=== PATIENT | male | born 1955 | race Caucasian/White ===

== ENCOUNTER 2022-12-07 13:44 | Observation (INO) | payer OTHER, SELFPAY ==
[2022-12-07] VITALS (15 sets, daily range): BP systolic 107–124; BP diastolic 55–67; PULSE 84–103; RESP 15–27; TEMP 36.9–37.7; O2SAT 92–95; BMI 35.9
--- NOTE | 2022-12-07 13:57 | DI.RAD.S_ITS ---
PROCEDURE: XR CHEST 1V INDICATIONS: suspected sepsis TECHNIQUE: One view of the chest was acquired. COMPARISON: None. FINDINGS: Surgical changes and devices: None. Lungs and pleura: Airspace opacity in right mid lung field and lower lung lewis are seen. Left lung is clear. No pleural effusions or pneumothorax. Mediastinum: Mediastinal contours appear normal. Heart size is normal. Bones and chest wall: No suspicious bony lesions. Overlying soft tissues appear unremarkable. IMPRESSION: Finding is concerning for patchy right upper and lower lobe infiltrates. No pleural effusion or pneumothorax. Dictated by: Alfred Torres M.D. on 12/07/2022 at 14:23 Approved by: Alfred Torres M.D. on 12/07/2022 at 14:24
[2022-12-07 14:11] LABS: Add Manual Diff / Slide Review NO; Basophils Absolute Auto 100 /uL (0-100); Basophils Percent Auto 0.4 % (0-2); Eosinophils Absolute Auto 0 /uL (0-450); Hematocrit 40.1 % (41-53); Hemoglobin 13.5 g/dL (13.5-17.5); Lymphocytes Absolute Auto 1200 /uL (1100-4500); Lymphocytes Percent Auto 5.7 % (25-40); Mean Corpuscular HGB Conc 33.7 % (30-36); Mean Corpuscular Volume 86.1 fL (80-100); Monocytes Absolute Auto 1500 /uL (0-900); Neutrophils Absolute Auto 18400 /uL (1500-7000); Neutrophils Percent Auto 86.9 % (50-75); Platelet Count 179 X10^3/uL (150-400); Red Blood Cell Count 4.65 X10^6/uL (4.5-5.9); Red Cell Distribution Width 14.1 % (11.6-14.8); White Blood Cell Count 21.2 X10^3/uL (4.5-11.0)
[2022-12-07] MEDS: SODIUM CHLORIDE 0.9% 1,000 ML 1000 ML IV (14:12)
--- NOTE | 2022-12-07 14:22 | PC.NURSE ---
Pt reports productive, green, brown goo cough. Pt reports sick earlier this week and multiple grandchildren sick with RSV and respiratory infections.
[2022-12-07 14:30] LABS: INR 1.3 (0.9-1.3); Prothrombin Time 14.5 SECONDS (10.1-12.7)
[2022-12-07 14:33] LABS: PTT Partial Thromboplastin Tim 30 SECONDS (26-36)
[2022-12-07 14:35] LABS: Alanine Aminotransferase 67 IU/L (<50); Albumin 4.4 g/dL (3.5-5.0); Albumin Globulin Ratio 1.4 (1.0-2.8); Alkaline Phosphatase 62 U/L (38-126); Aspartate Aminotransferase 41 IU/L (17-59); BUN Creatinine Ratio 28.1 (6-22); Bilirubin Total 0.7 mg/dL (0.2-1.3); Blood Urea Nitrogen 27 mg/dL (9-20); Calcium 9.1 mg/dL (8.4-10.2); Carbon Dioxide 21 mmol/L (22-32); Chloride 99 mmol/L (98-107); Estimated Glomerular Filt Rate > 60 mL/min (>60); Globulin 3.1 g/dL (1.7-4.1); Glucose 196 mg/dL (80-110); HEMOLYSIS < 15 (0-50); Lipase 50 U/L (23-300); Potassium 4.3 mmol/L (3.4-5.1); Sodium 136 mmol/L (137-145); Total Protein 7.5 g/dL (6.3-8.2)
[2022-12-07 14:48] LABS: Influenza A - CEPHEID Flu A NEGATIVE (NEGATIVE); Influenza B - CEPHEID Flu B NEGATIVE (NEGATIVE); Respiratory Syncytial Virus POSITIVE (Negative)
--- NOTE | 2022-12-07 14:49 | ED_ITS ---
HPI - URI/Sore Throat General Chief Complaint: Fever Stated Complaint: cold or flu, fever, freezing Time Seen by Provider: 12/07/22 14:07 Source: patient Mode of arrival: Ambulatory History of Present Illness HPI Narrative: Patient is a 67-year-old history of hypertension hyperlipidemia, BPH, presents today with body aches cough fever ongoing for about 1 week. His grandson apparently has RSV he is not been feeling well for a week she is had some cough and upper respiratory like symptoms. Last night however he got much worse with rigors sweats. Today he feels significantly worse. He does have some mild shortness of breath both at rest and with exertion no significant chest pain. He is got a slightly productive cough. No abdominal pain nausea vomiting. He is no lower extremity edema. He is eating and drinking he is got a bottle of water he is trying to stay hydrated. He was doing okay his was out of town. He usually never wants to go to the doctor or the hospital and today he asked to come be evaluated. Related Data Home Medications Medication Instructions Recorded Confirmed allopurinol 300 mg tablet 300 mg PO DAILY 12/07/22 12/07/22 amlodipine 2.5 mg tablet 2.5 mg PO DAILY 12/07/22 12/07/22 atorvastatin 10 mg tablet 10 mg PO DAILY 12/07/22 12/07/22 baclofen 10 mg tablet 10 mg PO TID PRN muscle spasms 12/07/22 12/07/22 bisoprolol fumarate 5 mg tablet 2.5 mg PO DAILY 12/07/22 12/07/22 diclofenac sodium 1 % topical gel 4 g topical BID PRN Pain (Scale 12/07/22 12/07/22 Score 1-3) finasteride 5 mg tablet 5 mg PO DAILY 12/07/22 12/07/22 fluoxetine 20 mg capsule 20 mg PO DAILY 12/07/22 12/07/22 furosemide 20 mg tablet 10 mg PO QAM 12/07/22 12/07/22 gabapentin 300 mg tablet 300 mg PO TID nerve pain 12/07/22 12/07/22 lanolin alcohols-mineral 1 applic topical DAILY 12/07/22 12/07/22 oil-w.petrolatum-ceresin topical cream (Eucerin topical cream) losartan 100 mg tablet 100 mg PO BEDTIME 12/07/22 12/07/22 metformin 500 mg tablet 500 mg PO BIDWMEAL 12/07/22 12/07/22 montelukast 10 mg tablet 10 mg PO DAILY 12/07/22 12/07/22 pantoprazole 40 mg tablet,delayed 40 mg PO DAILY 12/07/22 12/07/22 release tamsulosin 0.4 mg capsule 0.4 mg PO BEDTIME 12/07/22 12/07/22 terbinafine HCl 250 mg tablet See Rx Instructions .Route .COMPLEX 12/07/22 12/07/22 triamcinolone acetonide 0.1 % 1 applic topical BID PRN Rash 12/07/22 12/07/22 topical cream Allergies Allergy/AdvReac Type Severity Reaction Status Date / Time sildenafil [From Viagra] Allergy Intermediate Flushing Verified 12/07/22 13:54 Review of Systems Review of Systems ROS Unobtainable: All systems reviewed & are unremarkable except as noted in HPI and below Patient History Medical History Diabetes Gout Hypertension Social History household members: spouse Smoking Status: Never smoker alcohol intake: never Smoking Status: Never smoker alcohol intake frequency: 0-2 drinks per day Substance Use Type: does not use Exam Initial Vital Signs Initial Vital Signs: Vital Signs Temperature 99.9 F H 12/07/22 13:49 Pulse Rate 103 H 12/07/22 13:49 Respiratory Rate 18 12/07/22 13:49 Blood Pressure 111/61 12/07/22 13:49 Pulse Oximetry 94 12/07/22 13:49 Oxygen Delivery Method 12/07/22 13:49 GENERAL: Alert pleasant 67-year-old male appears to not feel well but in no acute distress. HEENT: Head atraumatic,EOMI, pupils reactive, face symmetric, moist mucous membranes CARDIOVASCULAR: Regular rate and rhythm without murmurs, rubs or gallops. RESPIRATORY: Rales and rhonchi more on right than left no significant tachypnea ABDOMEN: Soft, nontender. Normoactive bowel sounds all 4 quadrants. No guarding or rebound. EXTREMITIES: Normal range of motion, no clubbing or edema. Neurovascularly intact NEUROLOGICAL: Alert and oriented x4.Normal gait and speech. SKIN: Warm, dry, no laceration, no petechiae, no rashes or lesions. Course Orders Ordered: ED Orders 12/07/22 13:57 XR chest 1V Stat 12/07/22 14:03 A1C [Hemoglobin A1C% w Est Avg Glu] Urgent Complete Blood Count AUTO DIFF Stat Comprehensive Metabolic Panel Stat Covid-19 + FLU A/B + RSV - PCR Stat Lactate (Lactic Acid) Stat Lipase Stat Magnesium Urgent Partial Thromboplastin Time Stat Procalcitonin Stat Prothrombin Time INR Stat 12/07/22 14:23 Blood Culture Stat 12/07/22 14:38 EKG-12 Lead Stat 12/07/22 15:14 Education, smoking cessation ONGOING 12/07/22 15:19 Sputum Culture Stat 12/08/22 05:00 BMP [Basic Metabolic Panel] DAILY CBC Auto Diff [Complete Blood Count AUTO DIFF] DAILY Procalcitonin Urgent 12/09/22 05:00 BMP [Basic Metabolic Panel] DAILY CBC Auto Diff [Complete Blood Count AUTO DIFF] DAILY 12/10/22 05:00 BMP [Basic Metabolic Panel] DAILY CBC Auto Diff [Complete Blood Count AUTO DIFF] DAILY Acetaminophen (Acetaminophen 325 Mg Tablet) 650 mg PO Q6H PRN PRN Reason: Fever/Mild Pain (1-3) Last Admin: 12/07/22 18:08 Dose: 650 mg Documented By: BT Albuterol/Ipratropium (Albuterol/Ipratropium 3 Ml Ampul) 3 ml INH [id number] PRN PRN Reason: wheezing Allopurinol (Allopurinol 300 Mg Tablet) 300 mg PO DAILY [facility] Atorvastatin Calcium (Atorvastatin 20 Mg Tablet) 10 mg PO BEDTIME MARK Azithromycin (Azithromycin 250 Mg Tablet) 500 mg PO DAILY MARK Stop: 12/10/22 08:59 Baclofen (Baclofen 10 Mg Tablet) 10 mg PO TID PRN PRN Reason: muscle spasms Dextrose (Dextrose 50 % In Water 25 Gm/50 Ml Syringe) 25 gm IV PRN PRN PRN Reason: Hypoglycemia Enoxaparin Sodium (Enoxaparin 40 Mg/0.4 Ml Syringe) 40 mg SUBCUT DAILY [facility] Finasteride (Finasteride 5 Mg Tablet) 5 mg PO DAILY [facility] Fluoxetine HCl (Fluoxetine 20 Mg Capsule) 20 mg PO DAILY [facility] Gabapentin (Gabapentin 300 Mg Capsule) 300 mg PO TID [facility] Ceftriaxone Sodium 1,000 mg/ (Sodium Chloride) 100 mls @ 200 mls/hr IV Q24H [facility] Stop: 12/12/22 08:59 Magnesium Sulfate (Magnesium Sulfate) 4 gm in 100 mls @ 25 mls/hr IV NOW ONE Stop: 12/07/22 21:40 Last Admin: 12/07/22 18:07 Dose: 25 mls/hr Documented By: CYNTHIA Co-signed By: MAHNAZ Insulin Human Lispro (Insulin Lispro 100 Unit/Ml 3ml Vial) 0 unit SUBCUT ACHS [facility]; Protocol Last Admin: 12/07/22 17:30 Dose: Not Given Documented By: CYNTHIA Melatonin (Melatonin 3 Mg Tablet) 6 mg PO BEDTIME PRN PRN Reason: Insomnia Montelukast Sodium (Montelukast 10 Mg Tablet) 10 mg PO DAILY [facility] Naloxone HCl (Naloxone 0.4 Mg/Ml Vial) 0.2 mg IV Q2MIN PRN PRN Reason: Opiate Reversal Ondansetron HCl (Ondansetron 4 Mg/2 Ml Inj) 4 mg IV NOW PRN PRN Reason: Nausea And Vomiting Ondansetron HCl (Ondansetron 4 Mg/2 Ml Inj) 4 mg IV Q6HR [facility] Last Admin: 12/07/22 17:30 Dose: Not Given Documented By: CYNTHIA Pantoprazole Sodium (Pantoprazole Dr 40 Mg Tablet) 40 mg PO 0600 [facility] Polyethylene Glycol (Polyethylene Glycol 3350 17 Gm Powd.Pack) 17 gm PO DAILY PRN PRN Reason: Constipation Sennosides (Sennosides 8.6 Mg Tablet) 8.6 mg PO BID PRN PRN Reason: Constipation Tamsulosin HCl (Tamsulosin 0.4 Mg Capsule) 0.4 mg PO BEDTIME [facility] Discontinued Medications Sodium Chloride (Normal Saline 0.9%) 1,000 mls @ 1,000 mls/hr IV BOLUS ONE Stop: 12/07/22 14:56 Last Infusion: 12/07/22 15:09 Dose: 0 mls/hr Documented By: Admin: 12/07/22 14:12 Dose: 1,000 mls/hr Documented By: NIKI Sodium Chloride (Normal Saline 0.9%) 3,401.94 mls @ 1,133.98 mls/hr 30 ml/kg infuse over 3 hr (3401.94 ml) IV NOW ONE Stop: 12/07/22 17:55 Last Infusion: 12/07/22 15:54 Dose: 0 mls/hr Documented By: Admin: 12/07/22 15:11 Dose: 1,133.98 mls/hr Documented By: NIKI Ceftriaxone Sodium 2,000 mg/ (Sodium Chloride) 100 mls @ 200 mls/hr IV NOW ONE Stop: 12/07/22 14:57 Last Infusion: 12/07/22 15:48 Dose: 0 mls/hr Documented By: Admin: 12/07/22 15:10 Dose: 200 mls/hr Documented By: NIKI Azithromycin 500 mg/ Dextrose 250 mls @ 250 mls/hr IV NOW ONE Stop: 12/07/22 14:57 Last Admin: 12/07/22 15:49 Dose: 250 mls/hr Documented By: NIKI Vital Signs Vital signs: Vital Signs - 8 hr 12/07/22 13:49 12/07/22 14:18 12/07/22 14:20 Temperature 99.9 F H 98.4 F Pulse Rate 103 H 90 90 Respiratory Rate 18 24 Blood Pressure 111/61 115/63 Pulse Oximetry 94 93 Oxygen Delivery Method Room Air 12/07/22 14:30 12/07/22 14:30 12/07/22 14:40 Temperature Pulse Rate 88 90 Respiratory Rate 25 H 27 H Blood Pressure 115/63 Pulse Oximetry 95 94 Oxygen Delivery Method 12/07/22 14:50 12/07/22 15:00 12/07/22 15:00 Temperature Pulse Rate 87 85 Respiratory Rate 20 23 Blood Pressure 124/67 Pulse Oximetry 93 Oxygen Delivery Method Room Air 12/07/22 15:23 12/07/22 15:24 12/07/22 15:24 Temperature Pulse Rate 87 85 Respiratory Rate 19 18 Blood Pressure 122/64 Pulse Oximetry 92 95 Oxygen Delivery Method MDM - URI/Sore Throat Lab Data 12/07/22 14:03 12/07/22 14:03 Labs: Lab Results 12/07/22 12/07/22 12/07/22 Range/Units 14:03 14:03 14:03 WBC 21.2 H (4.5-11.0) X10^3/uL RBC 4.65 (4.5-5.9) X10^6/uL Hgb 13.5 (13.5-17.5) g/dL Hct 40.1 L (41-53) % MCV 86.1 (80-100) fL MCH 29.0 (26-34) PG MCHC 33.7 (30-36) % RDW 14.1 (11.6-14.8) % Plt Count 179 (150-400) X10^3/uL Neut % (Auto) 86.9 H (50-75) % Lymph % (Auto) 5.7 L (25-40) % [place] % (Auto) 7.0 (3-14) % Eos % (Auto) 0.0 L (2-4) % Baso % (Auto) 0.4 (0-2) % Neut # (Auto) 15496 H (5542-3595) /uL Lymph # (Auto) 1200 (5359-5010) /uL [place] # (Auto) 1500 H (0-900) /uL Eos # (Auto) 0 (0-450) /uL Baso # (Auto) 100 (0-100) /uL PT 14.5 H (10.1-12.7) SECONDS INR 1.3 (0.9-1.3) APTT 30 (26-36) SECONDS Sodium 136 L (137-145) mmol/L Potassium 4.3 (3.4-5.1) mmol/L Chloride 99 (98-107) mmol/L Carbon Dioxide 21 L (22-32) mmol/L BUN 27 H (9-20) mg/dL Creatinine 0.96 (0.66-1.25) mg/dL Estimated GFR > 60 (>60) mL/min BUN/Creatinine Ratio 28.1 H (6-22) Glucose 196 H (80-110) mg/dL Hemoglobin A1c (4.0-6.0) % Lactate (0.7-2.1) mmol/L Calcium 9.1 (8.4-10.2) mg/dL Magnesium (1.6-2.3) mg/dL Total Bilirubin 0.7 (0.2-1.3) mg/dL AST 41 (17-59) IU/L ALT 67 H (<50) IU/L Alkaline Phosphatase 62 (38-126) U/L Total Creatine Kinase (55-170) U/L CK-MB (CK-2) (<2.37) ng/mL CK-MB (CK-2) Rel Index (1.5-5.0) % Troponin I (0.01-0.034) ng/mL NT-Pro-B Natriuret Pep (<125) pg/mL Total Protein 7.5 (6.3-8.2) g/dL Albumin 4.4 (3.5-5.0) g/dL Globulin 3.1 (1.7-4.1) g/dL Albumin/Globulin Ratio 1.4 (1.0-2.8) Lipase 50 (23-300) U/L Procalcitonin 4.77 H (<0.5) ng/mL SARS-CoV-2 (PCR) (Negative) Influenza A (RT-PCR) (NEGATIVE) Influenza B (RT-PCR) (NEGATIVE) RSV (PCR) (Negative) 12/07/22 12/07/22 12/07/22 Range/Units 14:03 14:03 14:03 WBC (4.5-11.0) X10^3/uL RBC (4.5-5.9) X10^6/uL Hgb (13.5-17.5) g/dL Hct (41-53) % MCV (80-100) fL MCH (26-34) PG MCHC (30-36) % RDW (11.6-14.8) % Plt Count (150-400) X10^3/uL Neut % (Auto) (50-75) % Lymph % (Auto) (25-40) % [place] % (Auto) (3-14) % Eos % (Auto) (2-4) % Baso % (Auto) (0-2) % Neut # (Auto) (0488-3411) /uL Lymph # (Auto) (7053-4743) /uL [place] # (Auto) (0-900) /uL Eos # (Auto) (0-450) /uL Baso # (Auto) (0-100) /uL PT (10.1-12.7) SECONDS INR (0.9-1.3) APTT (26-36) SECONDS Sodium (137-145) mmol/L Potassium (3.4-5.1) mmol/L Chloride (98-107) mmol/L Carbon Dioxide (22-32) mmol/L BUN (9-20) mg/dL Creatinine (0.66-1.25) mg/dL Estimated GFR (>60) mL/min BUN/Creatinine Ratio (6-22) Glucose (80-110) mg/dL Hemoglobin A1c 6.7 H (4.0-6.0) % Lactate 4.0 H (0.7-2.1) mmol/L Calcium (8.4-10.2) mg/dL Magnesium (1.6-2.3) mg/dL Total Bilirubin (0.2-1.3) mg/dL AST (17-59) IU/L ALT (<50) IU/L Alkaline Phosphatase (38-126) U/L Total Creatine Kinase (55-170) U/L CK-MB (CK-2) (<2.37) ng/mL CK-MB (CK-2) Rel Index (1.5-5.0) % Troponin I (0.01-0.034) ng/mL NT-Pro-B Natriuret Pep (<125) pg/mL Total Protein (6.3-8.2) g/dL Albumin (3.5-5.0) g/dL Globulin (1.7-4.1) g/dL Albumin/Globulin Ratio (1.0-2.8) Lipase (23-300) U/L Procalcitonin (<0.5) ng/mL SARS-CoV-2 (PCR) Negative (Negative) Influenza A (RT-PCR) Flu a negative (NEGATIVE) Influenza B (RT-PCR) Flu b negative (NEGATIVE) RSV (PCR) Positive A (Negative) 12/07/22 12/07/22 Range/Units 14:03 14:03 WBC (4.5-11.0) X10^3/uL RBC (4.5-5.9) X10^6/uL Hgb (13.5-17.5) g/dL Hct (41-53) % MCV (80-100) fL MCH (26-34) PG MCHC (30-36) % RDW (11.6-14.8) % Plt Count (150-400) X10^3/uL Neut % (Auto) (50-75) % Lymph % (Auto) (25-40) % [place] % (Auto) (3-14) % Eos % (Auto) (2-4) % Baso % (Auto) (0-2) % Neut # (Auto) (2376-5602) /uL Lymph # (Auto) (1916-8877) /uL [place] # (Auto) (0-900) /uL Eos # (Auto) (0-450) /uL Baso # (Auto) (0-100) /uL PT (10.1-12.7) SECONDS INR (0.9-1.3) APTT (26-36) SECONDS Sodium (137-145) mmol/L Potassium (3.4-5.1) mmol/L Chloride (98-107) mmol/L Carbon Dioxide (22-32) mmol/L BUN (9-20) mg/dL Creatinine (0.66-1.25) mg/dL Estimated GFR (>60) mL/min BUN/Creatinine Ratio (6-22) Glucose (80-110) mg/dL Hemoglobin A1c (4.0-6.0) % Lactate (0.7-2.1) mmol/L Calcium (8.4-10.2) mg/dL Magnesium 1.3 L (1.6-2.3) mg/dL Total Bilirubin (0.2-1.3) mg/dL AST (17-59) IU/L ALT (<50) IU/L Alkaline Phosphatase (38-126) U/L Total Creatine Kinase 113 (55-170) U/L CK-MB (CK-2) 0.62 (<2.37) ng/mL CK-MB (CK-2) Rel Index 0.5 L (1.5-5.0) % Troponin I < 0.012 (0.01-0.034) ng/mL NT-Pro-B Natriuret Pep 138 H (<125) pg/mL Total Protein (6.3-8.2) g/dL Albumin (3.5-5.0) g/dL Globulin (1.7-4.1) g/dL Albumin/Globulin Ratio (1.0-2.8) Lipase (23-300) U/L Procalcitonin (<0.5) ng/mL SARS-CoV-2 (PCR) (Negative) Influenza A (RT-PCR) (NEGATIVE) Influenza B (RT-PCR) (NEGATIVE) RSV (PCR) (Negative) Imaging Data Chest x-ray: Radiologist's Impression: Signed Patient: Asif Asencio MR#: [id number] : 1955 Acct:[id number] Age/Sex: 67 / M Date of Service: 12/07/22 Loc: ED Accession Number: [id number] ?? Procedure: XR chest 1V Ordering Provider: Camryn Barrios D.O. PROCEDURE:? XR CHEST 1V ? INDICATIONS:? suspected sepsis ? TECHNIQUE:? One view of the chest was acquired.? ? COMPARISON:? None. ? FINDINGS:? ? Surgical changes and devices:? None.? ? Lungs and pleura:? Airspace opacity in right mid lung field and lower lung lewis are seen.? Left lung is clear.? No pleural effusions or pneumothorax.? ? Mediastinum:? Mediastinal contours appear normal.? Heart size is normal.? ? Bones and chest wall:? No suspicious bony lesions.? Overlying soft tissues appear unremarkable.? ? IMPRESSION:? Finding is concerning for patchy right upper and lower lobe infiltrates.? No pleural effusion or pneumothorax. ? ? Dictated by: Alfred Torres M.D. on 12/07/2022 at 14:23 ? ? Approved by: Alfred Torres M.D. on 12/07/2022 at 14:24 ? [facility] Narrative Medical decision making narrative: Patient 67-year-old male history of hypertension hyperlipidemia presenting today with cough fever and shortness of breath. He is found have pneumonia with right upper and lower lobe infiltrate. He is leukocytosis of 21 with a lactate of 4 procalcitonin 4.6. Is minimally tachycardic with heart rate of 103 which improved with fluids. He has low-grade fever of 99.9. His signs and symptoms consistent with pneumonia. Respiratory panel was also positive for RSV. He generally does not feel well however blood pressure remains stable. Respiratory rate is slowly increasing. Sepsis fluids are given due to significantly elevated lactate 4.0, which did improve to 2.5. He received 2 L bolus however increasing difficulty breathing however still not hypoxic. He denies any prior history of congestive heart failure. I have Re evaluated him he is sitting upright mildly tachypneic he still continues to have rales on the right side. BNP troponin and repeat x-ray have been added. Dr. Hernandez updated on patient's symptoms test results kindly accepts patient. Discharge Plan Departure Patient Disposition: Admitted As Inpatient Clinical Impression: Pneumonia, Sepsis, RSV infection Admit Date/Time: 12/07/22 15:25 Admit Provider: Leonard Hernandez
[2022-12-07 14:51] LABS: Procalcitonin 4.77 ng/mL (<0.5)
[2022-12-07] MEDS: cefTRIAXone 2,000 MG in SODIUM CHLORIDE 0.9% 100 ML 200 MG IV (15:10)
[2022-12-07] MEDS: SODIUM CHLORIDE 0.9% 3,401.94 ML 1133.98 ML IV (15:11)
[2022-12-07 15:22] LABS: COVID-19 CEPHEID 4-PLEX PCR Negative (Negative)
--- NOTE | 2022-12-07 15:27 | PM.HP.1 ---
History of Present Illness History of Present Illness Date Patient Seen: 12/07/22 Chief complaint: cold or flu, fever, freezing Narrative: Merly brush is a 67-year-old male with past medical history of asthma, gout, hypertension, hyperlipidemia, depression, BPH, and type 2 diabetes who presents with 1 week of fever, chills and shortness of breath. Patient says his grandsons were both recently sick with the cold. He then started feeling ill and hasn't gotten better in about a week so came to the ED. Has had lots of wheezing and sputum production. Denies CP, NV, abd pain, diarrhea or headache. Patient History Medical History Diabetes Gout Hypertension Family & Social History Safety & Behavioral: Feels Safe in Current Yes Environment Been Physically Hurt or No Threatened By a Person Tobacco & Substance use: Smoking Status Never smoker alcohol intake frequency 0-2 drinks per day Substance Use Type does not use Meds Home Medications and Allergies Home Medications Medication Instructions Recorded Confirmed Type allopurinol 300 mg tablet 300 mg PO DAILY 12/07/22 12/07/22 History amlodipine 2.5 mg tablet 2.5 mg PO DAILY 12/07/22 12/07/22 History atorvastatin 10 mg tablet 10 mg PO DAILY 12/07/22 12/07/22 History baclofen 10 mg tablet 10 mg PO TID PRN muscle spasms 12/07/22 12/07/22 History bisoprolol fumarate 5 mg tablet 2.5 mg PO DAILY 12/07/22 12/07/22 History diclofenac sodium 1 % topical gel 4 g topical BID PRN Pain (Scale 12/07/22 12/07/22 History Score 1-3) finasteride 5 mg tablet 5 mg PO DAILY 12/07/22 12/07/22 History fluoxetine 20 mg capsule 20 mg PO DAILY 12/07/22 12/07/22 History furosemide 20 mg tablet 10 mg PO QAM 12/07/22 12/07/22 History gabapentin 300 mg tablet 300 mg PO TID nerve pain 12/07/22 12/07/22 History lanolin alcohols-mineral 1 applic topical DAILY 12/07/22 12/07/22 History oil-w.petrolatum-ceresin topical cream (Eucerin topical cream) losartan 100 mg tablet 100 mg PO BEDTIME 12/07/22 12/07/22 History metformin 500 mg tablet 500 mg PO BIDWMEAL 12/07/22 12/07/22 History montelukast 10 mg tablet 10 mg PO DAILY 12/07/22 12/07/22 History pantoprazole 40 mg tablet,delayed 40 mg PO DAILY 12/07/22 12/07/22 History release tamsulosin 0.4 mg capsule 0.4 mg PO BEDTIME 12/07/22 12/07/22 History terbinafine HCl 250 mg tablet See Rx Instructions .Route .COMPLEX 12/07/22 12/07/22 History triamcinolone acetonide 0.1 % 1 applic topical BID PRN Rash 12/07/22 12/07/22 History topical cream Allergies Allergy/AdvReac Type Severity Reaction Status Date / Time sildenafil [From Viagra] Allergy Intermediate Flushing Verified 12/07/22 13:54 Review of Systems Review of Systems Narrative: All other systems reviewed with the patient and are negative unless otherwise stated. Exam Vital Signs (past 8 hours): - 12/07/22 13:49 12/07/22 14:18 12/07/22 14:20 Temperature 99.9 F H 98.4 F Pulse Rate 103 H 90 90 Respiratory Rate 18 24 Blood Pressure 111/61 115/63 Pulse Oximetry 94 93 Oxygen Delivery Method Room Air 12/07/22 14:30 12/07/22 14:30 12/07/22 14:40 Temperature Pulse Rate 88 90 Respiratory Rate 25 H 27 H Blood Pressure 115/63 Pulse Oximetry 95 94 Oxygen Delivery Method 12/07/22 14:50 12/07/22 15:00 12/07/22 15:00 Temperature Pulse Rate 87 85 Respiratory Rate 20 23 Blood Pressure 124/67 Pulse Oximetry 93 Oxygen Delivery Method Room Air Oxygen Delivery Method Room Air Narrative Exam Narrative: GEN: no acute distress HEENT: moist mucous membranes, PERRL NECK: trachea midline, no JVD CV: regular rate and rhythm, no murmurs PULM: diffuse expiratory wheezes ABD: soft, nontender, nondistended, no organomegaly EXT: warm and well perfused with no edema NEURO: awake, alert, oriented, no focal deficits Objective Labs 12/07/22 14:03 12/07/22 14:03 Labs: Laboratory Results - last 24 hr 12/07/22 12/07/22 12/07/22 14:03 14:03 14:03 WBC 21.2 H RBC 4.65 Hgb 13.5 Hct 40.1 L MCV 86.1 MCH 29.0 MCHC 33.7 RDW 14.1 Plt Count 179 Neut % (Auto) 86.9 H Lymph % (Auto) 5.7 L [place] % (Auto) 7.0 Eos % (Auto) 0.0 L Baso % (Auto) 0.4 Neut # (Auto) 49142 H Lymph # (Auto) 1200 [place] # (Auto) 1500 H Eos # (Auto) 0 Baso # (Auto) 100 PT 14.5 H INR 1.3 APTT 30 Sodium 136 L Potassium 4.3 Chloride 99 Carbon Dioxide 21 L BUN 27 H Creatinine 0.96 Estimated GFR > 60 BUN/Creatinine Ratio 28.1 H Glucose 196 H Lactate Calcium 9.1 Total Bilirubin 0.7 AST 41 ALT 67 H Alkaline Phosphatase 62 Total Protein 7.5 Albumin 4.4 Globulin 3.1 Albumin/Globulin Ratio 1.4 Lipase 50 Procalcitonin 4.77 H SARS-CoV-2 (PCR) Influenza A (RT-PCR) Influenza B (RT-PCR) RSV (PCR) 12/07/22 12/07/22 14:03 14:03 WBC RBC Hgb Hct MCV MCH MCHC RDW Plt Count Neut % (Auto) Lymph % (Auto) [place] % (Auto) Eos % (Auto) Baso % (Auto) Neut # (Auto) Lymph # (Auto) [place] # (Auto) Eos # (Auto) Baso # (Auto) PT INR APTT Sodium Potassium Chloride Carbon Dioxide BUN Creatinine Estimated GFR BUN/Creatinine Ratio Glucose Lactate 4.0 H Calcium Total Bilirubin AST ALT Alkaline Phosphatase Total Protein Albumin Globulin Albumin/Globulin Ratio Lipase Procalcitonin SARS-CoV-2 (PCR) Negative Influenza A (RT-PCR) Flu a negative Influenza B (RT-PCR) Flu b negative RSV (PCR) Positive A Assessment & Plan Assessment & Plan narrative: # sepsis secondary to RSV pneumonia with possible bacterial superinfection -WBC 21, HR 103 and lactate 4 -RSV positive on PCR, chest x-ray with infiltrates consistent with pneumonia -procalcitonin 4 suggesting bacterial infection -ceftriaxone x5 days and azithromycin x3 days -obtain sputum culture -trend procalcitonin # likely asthma without offical diagnosis -diffuse wheezes on exam -continue montelukast -duonebs q4h PRN # lactic acidosis -lactic acid of 4 in ED -s/p fluid boluses -trend lactate until normal -now 2.5 # type 2 diabetes, chronic -hold home metformin -low-dose sliding scale insulin -check A1c # hypertension, chronic -hold home blood pressure meds in setting of sepsis -resume if becomes hypertensive # hyperlipidemia, chronic -continue home statin # BPH -continue home finasteride and flomax # depression -continue home prozac # GERD -continue PPI # gout -continue allopurinol Code status is full code. COVID negative. RSV positive. DVT prophylaxis with Lovenox. Proxy is [place]. I have reviewed home meds and used all available resources to reconcile the home meds. This patient will be admitted as inpatient and will require greater than 2 midnights of hospital time to treat acquired pneumonia. Time Spent With Patient Critical Care time: I spent a total of [] minutes of critical care time on this patient's care today; this time is exclusive of procedural time.
[2022-12-07 15:38] LABS: Magnesium 1.3 mg/dL (1.6-2.3)
[2022-12-07 15:40] LABS: Hemoglobin A1C% w Est Avg Glu 6.7 % (4.0-6.0)
[2022-12-07] MEDS: AZITHROMYCIN 500 MG in DEXTROSE 5% IN WATER 250 ML 250 MG IV (15:49)
--- NOTE | 2022-12-07 16:03 | DI.RAD.S_ITS ---
PROCEDURE: XR CHEST 1V INDICATIONS: Short of breath TECHNIQUE: One view of the chest was acquired. COMPARISON: [facility], CR, XR CHEST 1V, 12/07/2022, 14:00. FINDINGS: Surgical changes and devices: None. Lungs and pleura: Patchy right midlung infiltrate can be seen, which is similar to the prior. Mediastinum: Mediastinal contours appear normal. Heart size is normal. Bones and chest wall: No suspicious bony lesions. Overlying soft tissues appear unremarkable. IMPRESSION: Stable patchy right midlung infiltrate. Dictated by: Syd Tom M.D. on 12/07/2022 at 15:35 Approved by: Syd Tom M.D. on 12/07/2022 at 15:35
--- NOTE | 2022-12-07 16:03 | PC.NURSE ---
Pt has audible wheezing. LS throughout have expiratory wheezes. Provider aware. New orders.
[2022-12-07 16:08] LABS: Reflexed Lactate in 2 Hours Y
[2022-12-07 16:16] LABS: Creatine Kinase 113 U/L (55-170)
[2022-12-07 16:29] LABS: NT-proBNP (BNP-Adult 18+) 138 pg/mL (<125); Troponin I < 0.012 ng/mL (0.01-0.034)
[2022-12-07 16:31] LABS: CKMB % Relative Index 0.5 % (1.5-5.0); Creatine Kinase MB 0.62 ng/mL (<2.37)
[2022-12-07 16:32] LABS: Lactate 2HR (Lactic Acid Rflx) 2.5 mmol/L (0.7-2.1)
[2022-12-07] MEDS: MAGNESIUM SULFATE 4 GM/100 ML PIGGYBACK IV (18:07)
[2022-12-07] MEDS: ACETAMINOPHEN 325 MG TABLET 650 MG PO (18:08)
[2022-12-07] MEDS: GABAPENTIN 300 MG CAPSULE PO (20:52)
[2022-12-07] MEDS: ATORVASTATIN 20 MG TABLET 10 MG PO (20:52)
[2022-12-07] MEDS: TAMSULOSIN 0.4 MG CAPSULE PO (20:52)
[2022-12-07] MEDS: BACLOFEN 10 MG TABLET PO (20:52)
[2022-12-07] MEDS: MELATONIN 3 MG TABLET 6 MG PO (20:53)
[2022-12-07] MEDS: ALBUTEROL/IPRATROPIUM 3 ML AMPUL INH (20:55)
[2022-12-08] VITALS (9 sets, daily range): BP systolic 101–147; BP diastolic 56–82; PULSE 67–118; RESP 18–20; TEMP 36.6–37.4; O2SAT 90–96
[2022-12-08] MEDS: PANTOPRAZOLE DR 40 MG TABLET PO (05:29)
[2022-12-08] MEDS: ACETAMINOPHEN 325 MG TABLET 650 MG PO ×2 (05:29→18:51)
[2022-12-08 07:55] LABS: Add Manual Diff / Slide Review NO; Basophils Absolute Auto 0 /uL (0-100); Basophils Percent Auto 0.3 % (0-2); Eosinophils Absolute Auto 100 /uL (0-450); Eosinophils Percent Auto 0.9 % (2-4); Hematocrit 35.1 % (41-53); Hemoglobin 11.7 g/dL (13.5-17.5); Lymphocytes Absolute Auto 1700 /uL (1100-4500); Lymphocytes Percent Auto 12.2 % (25-40); Mean Corpuscular HGB Conc 33.5 % (30-36); Mean Corpuscular Volume 86.5 fL (80-100); Monocytes Absolute Auto 800 /uL (0-900); Monocytes Percent Auto 5.8 % (3-14); Neutrophils Absolute Auto 11400 /uL (1500-7000); Neutrophils Percent Auto 80.8 % (50-75); Platelet Count 139 X10^3/uL (150-400); Red Blood Cell Count 4.05 X10^6/uL (4.5-5.9); Red Cell Distribution Width 14.1 % (11.6-14.8); White Blood Cell Count 14.1 X10^3/uL (4.5-11.0)
[2022-12-08 08:12] LABS: BUN Creatinine Ratio 26.2 (6-22); Blood Urea Nitrogen 17 mg/dL (9-20); Calcium 8.5 mg/dL (8.4-10.2); Carbon Dioxide 27 mmol/L (22-32); Chloride 101 mmol/L (98-107); Estimated Glomerular Filt Rate > 60 mL/min (>60); Glucose 127 mg/dL (80-110); HEMOLYSIS < 15 (0-50); Potassium 4.2 mmol/L (3.4-5.1); Sodium 138 mmol/L (137-145)
[2022-12-08 08:16] LABS: Magnesium 2.1 mg/dL (1.6-2.3)
[2022-12-08 08:27] LABS: Procalcitonin 3.03 ng/mL (<0.5)
[2022-12-08] MEDS: ENOXAPARIN 40 MG/0.4 ML SYRINGE SUBCUT (09:32)
[2022-12-08] MEDS: allopurinoL 300 MG TABLET PO (09:32)
[2022-12-08] MEDS: GABAPENTIN 300 MG CAPSULE PO ×3 (09:33→20:40)
[2022-12-08] MEDS: MONTELUKAST 10 MG TABLET PO (09:33)
[2022-12-08] MEDS: FINASTERIDE 5 MG TABLET PO (09:33)
[2022-12-08] MEDS: FLUoxetine 20 MG CAPSULE PO (09:33)
[2022-12-08] MEDS: cefTRIAXone 1,000 MG in SODIUM CHLORIDE 0.9% 100 ML 200 MG IV (09:33)
[2022-12-08] MEDS: AZITHROMYCIN 250 MG TABLET 500 MG PO (09:33)
--- NOTE | 2022-12-08 11:10 | P.PN_ITS ---
Subjective Subjective Interval history: Asif Asencio is a 67-year-old male with past medical history of asthma, gout, hypertension, hyperlipidemia, depression, BPH, and type 2 diabetes who presents with 1 week of fever, chills and shortness of breath. Patient says his grandsons were both recently sick with the cold. He then started feeling ill and hasn't gotten better in about a week so came to the ED. Has had lots of wheezing and sputum production. Denies CP, NV, abd pain, diarrhea or headache. RSV positive and Pneumonia noted on chest xray. Exam Vital Signs (past 8 hours): - 12/08/22 06:00 12/08/22 08:31 12/08/22 08:00 Temperature 98.5 F 97.8 F Pulse Rate 73 68 Respiratory Rate 20 Blood Pressure 107/65 122/56 L Pulse Oximetry 90 L 95 Oxygen Flow Rate 0 0 Oxygen Delivery Method Room Air Oxygen Flow Rate 0 Narrative Exam Narrative: GEN: no acute distress HEENT: moist mucous membranes, PERRL NECK: trachea midline, no JVD CV: regular rate and rhythm, no murmurs PULM: diffuse expiratory wheezes through the lung lewis, coughing a lot ABD: soft, nontender, nondistended, no organomegaly EXT: warm and well perfused with no edema NEURO: awake, alert, oriented, no focal deficits Objective Labs 12/08/22 07:22 12/08/22 07:22 Labs: Laboratory Results - last 24 hr 12/07/22 12/07/22 12/07/22 14:03 14:03 14:03 WBC 21.2 H RBC 4.65 Hgb 13.5 Hct 40.1 L MCV 86.1 MCH 29.0 MCHC 33.7 RDW 14.1 Plt Count 179 Neut % (Auto) 86.9 H Lymph % (Auto) 5.7 L [place] % (Auto) 7.0 Eos % (Auto) 0.0 L Baso % (Auto) 0.4 Neut # (Auto) 22845 H Lymph # (Auto) 1200 [place] # (Auto) 1500 H Eos # (Auto) 0 Baso # (Auto) 100 PT 14.5 H INR 1.3 APTT 30 Sodium 136 L Potassium 4.3 Chloride 99 Carbon Dioxide 21 L BUN 27 H Creatinine 0.96 Estimated GFR > 60 BUN/Creatinine Ratio 28.1 H Glucose 196 H Hemoglobin A1c Lactate Calcium 9.1 Magnesium Total Bilirubin 0.7 AST 41 ALT 67 H Alkaline Phosphatase 62 Total Creatine Kinase CK-MB (CK-2) CK-MB (CK-2) Rel Index Troponin I NT-Pro-B Natriuret Pep Total Protein 7.5 Albumin 4.4 Globulin 3.1 Albumin/Globulin Ratio 1.4 Lipase 50 Procalcitonin 4.77 H SARS-CoV-2 (PCR) Influenza A (RT-PCR) Influenza B (RT-PCR) RSV (PCR) 12/07/22 12/07/22 12/07/22 14:03 14:03 14:03 WBC RBC Hgb Hct MCV MCH MCHC RDW Plt Count Neut % (Auto) Lymph % (Auto) [place] % (Auto) Eos % (Auto) Baso % (Auto) Neut # (Auto) Lymph # (Auto) [place] # (Auto) Eos # (Auto) Baso # (Auto) PT INR APTT Sodium Potassium Chloride Carbon Dioxide BUN Creatinine Estimated GFR BUN/Creatinine Ratio Glucose Hemoglobin A1c 6.7 H Lactate 4.0 H Calcium Magnesium Total Bilirubin AST ALT Alkaline Phosphatase Total Creatine Kinase CK-MB (CK-2) CK-MB (CK-2) Rel Index Troponin I NT-Pro-B Natriuret Pep Total Protein Albumin Globulin Albumin/Globulin Ratio Lipase Procalcitonin SARS-CoV-2 (PCR) Negative Influenza A (RT-PCR) Flu a negative Influenza B (RT-PCR) Flu b negative RSV (PCR) Positive A 12/07/22 12/07/22 12/07/22 14:03 14:03 16:15 WBC RBC Hgb Hct MCV MCH MCHC RDW Plt Count Neut % (Auto) Lymph % (Auto) [place] % (Auto) Eos % (Auto) Baso % (Auto) Neut # (Auto) Lymph # (Auto) [place] # (Auto) Eos # (Auto) Baso # (Auto) PT INR APTT Sodium Potassium Chloride Carbon Dioxide BUN Creatinine Estimated GFR BUN/Creatinine Ratio Glucose Hemoglobin A1c Lactate 2.5 H Calcium Magnesium 1.3 L Total Bilirubin AST ALT Alkaline Phosphatase Total Creatine Kinase 113 CK-MB (CK-2) 0.62 CK-MB (CK-2) Rel Index 0.5 L Troponin I < 0.012 NT-Pro-B Natriuret Pep 138 H Total Protein Albumin Globulin Albumin/Globulin Ratio Lipase Procalcitonin SARS-CoV-2 (PCR) Influenza A (RT-PCR) Influenza B (RT-PCR) RSV (PCR) 12/08/22 12/08/22 12/08/22 07:22 07:22 07:22 WBC 14.1 H RBC 4.05 L Hgb 11.7 L Hct 35.1 L MCV 86.5 MCH 29.0 MCHC 33.5 RDW 14.1 Plt Count 139 L Neut % (Auto) 80.8 H Lymph % (Auto) 12.2 L [place] % (Auto) 5.8 Eos % (Auto) 0.9 L Baso % (Auto) 0.3 Neut # (Auto) 14253 H Lymph # (Auto) 1700 [place] # (Auto) 800 Eos # (Auto) 100 Baso # (Auto) 0 PT INR APTT Sodium 138 Potassium 4.2 Chloride 101 Carbon Dioxide 27 BUN 17 Creatinine 0.65 L Estimated GFR > 60 BUN/Creatinine Ratio 26.2 H Glucose 127 H Hemoglobin A1c Lactate Calcium 8.5 Magnesium 2.1 Total Bilirubin AST ALT Alkaline Phosphatase Total Creatine Kinase CK-MB (CK-2) CK-MB (CK-2) Rel Index Troponin I NT-Pro-B Natriuret Pep Total Protein Albumin Globulin Albumin/Globulin Ratio Lipase Procalcitonin 3.03 H SARS-CoV-2 (PCR) Influenza A (RT-PCR) Influenza B (RT-PCR) RSV (PCR) PFSH Medical History Diabetes Gout Hypertension Social History household members: spouse Smoking Status: Never smoker alcohol intake: never Assessment & Plan Assessment & Plan narrative: # sepsis secondary to RSV pneumonia with possible bacterial superinfection, blood cultures are pending. -WBC 21, HR 103 and lactate 4, today white blood count is 14.1 lactate is 2.5 -RSV positive on PCR, chest x-ray with infiltrates consistent with pneumonia -procalcitonin 4 suggesting bacterial infection, trending downward with level of 3.03 today -ceftriaxone x5 days and azithromycin x3 days -obtain sputum culture, result pending -trend procalcitonin # likely asthma without offical diagnosis -diffuse wheezes on exam -continue montelukast -duonebs q4h PRN -add prednisone 60 mg daily for 5 days # lactic acidosis -lactic acid of 4 in ED, has decreased to 2.5 today.continue to follow -s/p fluid boluses -trend lactate until normal # type 2 diabetes, chronic -hold home metformin -low-dose sliding scale insulin -check A1c, pending tomorrow # hypertension, chronic, stable today -hold home blood pressure meds in setting of sepsis -resume if becomes hypertensive # hyperlipidemia, chronic -continue home statin # BPH -continue home finasteride and flomax # depression -continue home prozac # GERD -continue PPI # gout -continue allopurinol Code status is full code. COVID negative.? RSV positive. DVT prophylaxis with Lovenox. Proxy is Minerva. Time Spent With Patient Critical Care time: I spent a total of [] minutes of critical care time on this patient's care today; this time is exclusive of procedural time.
[2022-12-08] MEDS: predniSONE 20 MG TABLET 60 MG PO (11:47)
[2022-12-08] MEDS: INSULIN LISPRO 100 UNIT/ML 3ML VIAL SUBCUT ×2 (11:58→17:01)
--- NOTE | 2022-12-08 13:13 | CM.DANOTE ---
DCP: Assessment 67 yo male admitted via POV with c/o body aches, cough, fever ongoing for about a week that had worsened overnight with noted rigors sweats. He is noted to have Pneumonia, Sepsis, RSV infection. This CM unable to meet with pt in his room due to isolation precautions. This CM spoke with pt's Minerva who is in the room with pt . She confirms that they live in [place], that pt drives and that he does not use DME. PCP: Ruddy Kinsey -- [facility], [facility], [facility] P: Home with when medically stable. Laura Holden RN Case Manager Discharge Planning/Care Management CM Discharge Assessment Start: 12/08/22 13:12 Freq: Status: Active Protocol: Document 12/08/22 13:12 SUSANNAH (Rec: 12/08/22 13:13 SUSANNAH [id number]) Discharge Planning Assessment Assigned Switch Foreman Laura Holden RN Case Manager Advance Directives? No History Provided By Family Member,Medical Record Has Patient been admitted in last 30 No days? Prior Living Arrangements House Household Members spouse Type of transporation used prior to Drives own vehicle admit Independent with ADL's Yes Is patient alert and oriented? Yes Comment Home with Spouse Barriers to Discharge No Whiteboard Updated in Patient Room with Yes name and ext. # of Switch Foreman Review Status In Process Next Review Type Continued Stay Review
--- NOTE | 2022-12-08 17:15 | PC.NURSE ---
Day shift: Pt has denied any nausea all day. Schedualed Zofran was not given per Pt's request.
[2022-12-08] MEDS: ALBUTEROL/IPRATROPIUM 3 ML AMPUL INH (17:55)
[2022-12-08] MEDS: ATORVASTATIN 20 MG TABLET 10 MG PO (20:40)
[2022-12-08] MEDS: SODIUM CHLORIDE 0.9% FLUSH 10 ML IV (20:47)
[2022-12-08] MEDS: TAMSULOSIN 0.4 MG CAPSULE PO (20:51)
[2022-12-09] VITALS: BP 142/79; PULSE 77; RESP 20; TEMP 36.4; O2SAT 94
[2022-12-09] MEDS: MELATONIN 3 MG TABLET 6 MG PO (03:30)
[2022-12-09] MEDS: ACETAMINOPHEN 325 MG TABLET 650 MG PO (03:30)
[2022-12-09 06:33] VITALS: BP 133/85; PULSE 80; RESP 18; TEMP 36.8; O2SAT 95
[2022-12-09 07:22] LABS: Add Manual Diff / Slide Review NO; Basophils Absolute Auto 0 /uL (0-100); Basophils Percent Auto 0.3 % (0-2); Eosinophils Absolute Auto 0 /uL (0-450); Eosinophils Percent Auto 0.3 % (2-4); Hematocrit 35.7 % (41-53); Lymphocytes Absolute Auto 1600 /uL (1100-4500); Lymphocytes Percent Auto 12.9 % (25-40); Mean Corpuscular HGB Conc 33.8 % (30-36); Mean Corpuscular Hemoglobin 29.1 PG (26-34); Mean Corpuscular Volume 86.2 fL (80-100); Monocytes Absolute Auto 800 /uL (0-900); Monocytes Percent Auto 6.1 % (3-14); Neutrophils Absolute Auto 10000 /uL (1500-7000); Neutrophils Percent Auto 80.4 % (50-75); Platelet Count 152 X10^3/uL (150-400); Red Blood Cell Count 4.14 X10^6/uL (4.5-5.9); Red Cell Distribution Width 14.1 % (11.6-14.8); White Blood Cell Count 12.5 X10^3/uL (4.5-11.0)
[2022-12-09 07:29] LABS: BUN Creatinine Ratio 20.6 (6-22); Blood Urea Nitrogen 14 mg/dL (9-20); Calcium 8.9 mg/dL (8.4-10.2); Carbon Dioxide 26 mmol/L (22-32); Chloride 104 mmol/L (98-107); Estimated Glomerular Filt Rate > 60 mL/min (>60); Glucose 152 mg/dL (80-110); HEMOLYSIS < 15 (0-50); Lactate (Lactic Acid) 1.6 mmol/L (0.7-2.1); Potassium 3.9 mmol/L (3.4-5.1); Sodium 138 mmol/L (137-145)
[2022-12-09 07:46] LABS: Procalcitonin 1.78 ng/mL (<0.5)
[2022-12-09] MEDS: INSULIN LISPRO 100 UNIT/ML 3ML VIAL SUBCUT (09:09)
[2022-12-09] MEDS: ENOXAPARIN 40 MG/0.4 ML SYRINGE SUBCUT (09:10)
[2022-12-09] MEDS: FLUoxetine 20 MG CAPSULE PO (09:10)
[2022-12-09] MEDS: FINASTERIDE 5 MG TABLET PO (09:10)
[2022-12-09] MEDS: AZITHROMYCIN 250 MG TABLET 500 MG PO (09:10)
[2022-12-09] MEDS: GABAPENTIN 300 MG CAPSULE PO (09:10)
[2022-12-09] MEDS: MONTELUKAST 10 MG TABLET PO (09:10)
[2022-12-09] MEDS: predniSONE 20 MG TABLET 60 MG PO (09:10)
[2022-12-09] MEDS: allopurinoL 300 MG TABLET PO (09:10)
[2022-12-09] MEDS: cefTRIAXone 1,000 MG in SODIUM CHLORIDE 0.9% 100 ML 100 MG IV (09:10)
[2022-12-09] MEDS: SODIUM CHLORIDE 0.9% FLUSH 10 ML IV (09:11)
--- NOTE | 2022-12-09 10:45 | P.DS_ITS ---
History of Present Illness History of Present Illness Date Patient Seen: 12/09/22 Chief complaint: cold or flu, fever, freezing Narrative: Asif Asencio is a 67-year-old male with past medical history of asthma, gout, hypertension, hyperlipidemia, depression, BPH, and type 2 diabetes who presents with 1 week of fever, chills and shortness of breath. Patient says his grandsons were both recently sick with the cold. He then started feeling ill and hasn't gotten better in about a week so came to the ED. Has had lots of wheezing and sputum production. Denies CP, NV, abd pain, diarrhea or headache. RSV positive and Pneumonia noted on chest xray. Discharge Providers Provider Date of admission: 12/07/22 15:25 Discharge Date: 12/09/22 Primary care physician: BUSTER Robles Discharge provider: Carol Michael MD Summary Hospital Course Discharge Diagnosis: Concern for sepsis however blood cultures negative RSV pneumonia with possible bacterial superinfection Leukocytosis Elevated procalcitonin Asthma secondary to pneumonia Lactic acidosis Type 2 diabetes Minimal elevation of BNP Hypertension Hyperlipidemia BPH Depression GERD Insomnia Anxiety secondary to prednisone Hospital Course: Asif Aesncio is a 67-year-old male with past medical history of asthma, gout, hypertension, hyperlipidemia, depression, BPH, and type 2 diabetes who presents with 1 week of fever, chills and shortness of breath. Patient says his grandsons were both recently sick with the cold. He then started feeling ill and hasn't gotten better in about a week so came to the ED. Has had lots of wheezing and sputum production. Denies CP, NV, abd pain, diarrhea or headache. RSV positive and Pneumonia noted on chest xray with right middle lobe pneumonia. Patient was treated with Azithromycin 500 mg for 3 days orally and Ceftriaxone 1 mg IV daily while in hospital and this was transitioned to 6 days of Augmentin 500/125 TID on discharge. For wheezing patient given 60 mg Prednisone daily in hospital and this was stepped down to 20 mg daily for 5 days starting the day after discharge at home. The prednisone was disrupting sleep and so patient prescribed both Melatonin and Trazodone for sleep on discharge. Blood cultures were negative. Procalciton and WBC were downtrending throughout the hospital stay. RSV was positive. Status at Discharge Cognitive/behavioral status at discharge: at baseline, oriented Functional status at discharge: independent ambulation Overall status at discharge: patient is progressing back to baseline Time Spent with Patient Time spent: Greater than 30 minutes Exam Vital Signs (past 8 hours): - 12/09/22 06:33 Temperature 98.2 F Pulse Rate 80 Respiratory Rate 18 Blood Pressure 133/85 Pulse Oximetry 95 Oxygen Flow Rate 0 Oxygen Delivery Method Room Air Oxygen Flow Rate 0 Narrative Exam Narrative: GEN: no acute distress HEENT: moist mucous membranes, PERRL NECK: trachea midline, no JVD CV: regular rate and rhythm, no murmurs PULM: ocassional expiratory wheezes through the lung lewis, coughing completely clears any wheezing ABD: soft, nontender, nondistended, no organomegaly EXT: warm and well perfused with no edema NEURO: awake, alert, oriented, no focal deficits Objective Labs 12/09/22 07:09 12/09/22 07:09 Labs: Laboratory Results - last 24 hr 12/09/22 12/09/22 12/09/22 07:09 07:09 07:09 WBC 12.5 H RBC 4.14 L Hgb 12.0 L Hct 35.7 L MCV 86.2 MCH 29.1 MCHC 33.8 RDW 14.1 Plt Count 152 Neut % (Auto) 80.4 H Lymph % (Auto) 12.9 L [place] % (Auto) 6.1 Eos % (Auto) 0.3 L Baso % (Auto) 0.3 Neut # (Auto) 97452 H Lymph # (Auto) 1600 [place] # (Auto) 800 Eos # (Auto) 0 Baso # (Auto) 0 Sodium 138 Potassium 3.9 Chloride 104 Carbon Dioxide 26 BUN 14 Creatinine 0.68 Estimated GFR > 60 BUN/Creatinine Ratio 20.6 Glucose 152 H Lactate Calcium 8.9 Magnesium 2.0 Procalcitonin 1.78 H 12/09/22 07:09 WBC RBC Hgb Hct MCV MCH MCHC RDW Plt Count Neut % (Auto) Lymph % (Auto) [place] % (Auto) Eos % (Auto) Baso % (Auto) Neut # (Auto) Lymph # (Auto) [place] # (Auto) Eos # (Auto) Baso # (Auto) Sodium Potassium Chloride Carbon Dioxide BUN Creatinine Estimated GFR BUN/Creatinine Ratio Glucose Lactate 1.6 Calcium Magnesium Procalcitonin [facility] Medical History Diabetes Gout Hypertension Social History household members: spouse Smoking Status: Never smoker alcohol intake: never Discharge Plan Discharge Plan Patient Disposition: Home Discharge orders & Medications Prescriptions: New sennosides [senna] 8.6 mg Tablet 8.6 mg PO BID PRN (Reason: Constipation) Qty: 30 0RF melatonin 3 mg Tablet 6 mg PO BEDTIME PRN (Reason: Insomnia) Qty: 30 0RF trazodone 50 mg tablet 25 mg PO BEDTIME MDD 25 mg PRN (Reason: sleep) Qty: 15 0RF prednisone 20 mg tablet 20 mg PO DAILY MDD 20mg Qty: 5 0RF Rx Instructions: Start on Dec 10 amoxicillin-pot clavulanate [Augmentin] 500-125 mg tablet 1 tab PO TID MDD 3 tablets Qty: 18 0RF Continued atorvastatin 10 mg Tablet 10 mg PO DAILY amlodipine 2.5 mg Tablet 2.5 mg PO DAILY bisoprolol fumarate 5 mg Tablet 2.5 mg PO DAILY baclofen 10 mg Tablet 10 mg PO TID PRN (Reason: muscle spasms) allopurinol 300 mg Tablet 300 mg PO DAILY furosemide 20 mg Tablet 10 mg PO QAM fluoxetine 20 mg Capsule 20 mg PO DAILY finasteride 5 mg Tablet 5 mg PO DAILY gabapentin 300 mg Tablet 300 mg PO TID diclofenac sodium 1 % Gel 4 g TOPICAL BID PRN (Reason: Pain (Scale Score 1-3)) Eucerin Cream 1 applic TOPICAL DAILY metformin 500 mg Tablet 500 mg PO BIDWMEAL triamcinolone acetonide 0.1 % Cream 1 applic TOPICAL BID PRN (Reason: Rash) Rx Instructions: christiana;ly moderate amount to affected area bid as needed for skin condition terbinafine HCl 250 mg Tablet See Rx Instructions .ROUTE .COMPLEX Rx Instructions: take one tablet by mouth every daon on the first 7 days of each month. tamsulosin 0.4 mg Capsule 0.4 mg PO BEDTIME pantoprazole 40 mg Tablet,Delayed Release (Dr/Ec) 40 mg PO DAILY montelukast 10 mg Tablet 10 mg PO DAILY losartan 100 mg Tablet 100 mg PO BEDTIME Follow up/Referrals: Ruddy Kinsey ARNP [Primary Care Provider] - Visit Report/Discharge Packet Stand Alone Forms: Patient Portal/API, Stroke Signs & Symptoms Discharge Data Primary Care Provider: Ruddy Kinsey Attending Provider: eLonard Hernandez
== END 2022-12-09 12:45 | disposition home or self-care (01) ==
LOC: ED 14:33 → AC 15:26
PROVIDERS: Neuromusculoskeletal Medicine, Sports Medicine; Admitting Provider Student in an Organized Health Care Education/Training Program; Emergency Provider Emergency Medicine; PCP Nurse Practitioner Family; Referring Provider Emergency Medicine; Visit Provider Student in an Organized Health Care Education/Training Program
DX: J12.1 Respiratory syncytial virus pneumonia (principal); D72.829 Elevated white blood cell count, unspecified; E22.1 Hyperprolactinemia; E11.9 Type 2 diabetes mellitus without complications; I10 Essential (primary) hypertension; K21.9 Gastro-esophageal reflux disease without esophagitis; F41.9 Anxiety disorder, unspecified; Z79.84 Long term (current) use of oral hypoglycemic drugs; Z20.822 Contact with and (suspected) exposure to COVID-19
CPT/HCPCS: 0241U; 36415; 71045; 80048; 80053; 81003; 82550; 82553; 82962; 83036; 83605; 83690; 83735; 83880; 84145; 84484; 85025; 85610; 85730; 87040; 87070; 87205; 93005; 93010; 94640; 96361; 96365; 96366; 96372; 99284; G0378; J0696; J1650; J1815; J3475

== ENCOUNTER 2022-12-31 14:51 | Emergency (ER) | payer OTHER, SELFPAY ==
[2022-12-07 17:07] VITALS: BMI 35.9
[2022-12-31 15:17] VITALS: BP 117/62; PULSE 67; RESP 18; TEMP 37.1; O2SAT 96; BMI 34.4
--- NOTE | 2022-12-31 15:21 | DI.RAD.S_ITS ---
PROCEDURE: XR CHEST 1V INDICATIONS: chest pain TECHNIQUE: One view of the chest was acquired. COMPARISON: [facility], CR, XR CHEST 1V, 12/07/2022, 16:02. FINDINGS: Surgical changes and devices: None. Lungs and pleura: Lungs are clear. No pleural effusions or pneumothorax. Mediastinum: Mediastinal contours appear normal. Heart size is normal. Bones and chest wall: No suspicious bony lesions. Overlying soft tissues appear unremarkable. IMPRESSION: No acute pulmonary process. Dictated by: Kym Shaffer M.D. on 12/31/2022 at 16:08 Approved by: Kym Shaffer M.D. on 12/31/2022 at 16:08
[2022-12-31 15:32] LABS: Add Manual Diff / Slide Review NO; Basophils Absolute Auto 100 /uL (0-100); Basophils Percent Auto 1.2 % (0-2); Eosinophils Absolute Auto 200 /uL (0-450); Eosinophils Percent Auto 3.1 % (2-4); Hematocrit 38.1 % (41-53); Hemoglobin 12.8 g/dL (13.5-17.5); Lymphocytes Absolute Auto 1300 /uL (1100-4500); Lymphocytes Percent Auto 26.8 % (25-40); Mean Corpuscular HGB Conc 33.6 % (30-36); Mean Corpuscular Hemoglobin 29.2 PG (26-34); Monocytes Absolute Auto 500 /uL (0-900); Monocytes Percent Auto 11.1 % (3-14); Neutrophils Absolute Auto 2900 /uL (1500-7000); Neutrophils Percent Auto 57.8 % (50-75); Platelet Count 162 X10^3/uL (150-400); Red Blood Cell Count 4.37 X10^6/uL (4.5-5.9); Red Cell Distribution Width 14.5 % (11.6-14.8); White Blood Cell Count 4.9 X10^3/uL (4.5-11.0)
[2022-12-31 15:38] LABS: INR 1.5 (0.9-1.3); Prothrombin Time 17.4 SECONDS (10.1-12.7)
[2022-12-31 15:41] LABS: PTT Partial Thromboplastin Tim 39 SECONDS (26-36)
[2022-12-31 15:43] LABS: Alanine Aminotransferase 62 IU/L (<50); Albumin 4.3 g/dL (3.5-5.0); Albumin Globulin Ratio 1.3 (1.0-2.8); Alkaline Phosphatase 51 U/L (38-126); Aspartate Aminotransferase 51 IU/L (17-59); Bilirubin Total 0.7 mg/dL (0.2-1.3); Blood Urea Nitrogen 19 mg/dL (9-20); Carbon Dioxide 27 mmol/L (22-32); Chloride 103 mmol/L (98-107); Creatine Kinase 107 U/L (55-170); Estimated Glomerular Filt Rate > 60 mL/min (>60); Globulin 3.2 g/dL (1.7-4.1); Glucose 117 mg/dL (80-110); Lipase 84 U/L (23-300); Potassium 4.5 mmol/L (3.4-5.1); Sodium 137 mmol/L (137-145); Total Protein 7.5 g/dL (6.3-8.2)
[2022-12-31 15:45] LABS: Magnesium 1.8 mg/dL (1.6-2.3)
[2022-12-31 15:58] LABS: CKMB % Relative Index 1.1 % (1.5-5.0); Creatine Kinase MB 1.14 ng/mL (<2.37)
[2022-12-31 16:07] LABS: Troponin I < 0.012 ng/mL (0.01-0.034)
[2022-12-31 16:45] LABS: HEMOLYSIS 62 (0-50)
[2022-12-31 17:56] LABS: Creatine Kinase 98 U/L (55-170)
[2022-12-31 18:09] LABS: Troponin I < 0.012 ng/mL (0.01-0.034)
[2022-12-31 19:29] VITALS: BP 133/70; PULSE 55; RESP 16; O2SAT 99
--- NOTE | 2022-12-31 20:25 | ED.CHESTPAIN ---
HPI - Chest Pain <Wilfrido Kirby PA-C - Last Filed: 12/31/22 20:30> General Chief Complaint: Chest Pain Stated Complaint: Tightness in chest, R abd pain, dizzy, headache Time Seen by Provider: 12/31/22 17:06 Source: patient and family Mode of arrival: Ambulatory Limitations: no limitations History of Present Illness HPI narrative: 67-year-old male with a history of AFib on Eliquis presents to the ED with 2 weeks of cough and fatigue. Patient was diagnosed 2 weeks ago with an RSV infection, which led to pneumonia and sepsis for which he was hospitalized here. Patient states that he has continued to cough since leaving the hospital and also feels very tired. Patient denies fever, chills, chest pain, shortness of breath, nausea, vomiting, abdominal pain, dysuria, dizziness, syncope. Patient states that he is sometimes lightheaded. Related Data Home Medications Medication Instructions Recorded Confirmed allopurinol 300 mg tablet 300 mg PO DAILY 12/07/22 12/07/22 amlodipine 2.5 mg tablet 2.5 mg PO DAILY 12/07/22 12/07/22 atorvastatin 10 mg tablet 10 mg PO DAILY 12/07/22 12/07/22 baclofen 10 mg tablet 10 mg PO TID PRN muscle spasms 12/07/22 12/07/22 bisoprolol fumarate 5 mg tablet 2.5 mg PO DAILY 12/07/22 12/07/22 diclofenac sodium 1 % topical gel 4 g topical BID PRN Pain (Scale 12/07/22 12/07/22 Score 1-3) finasteride 5 mg tablet 5 mg PO DAILY 12/07/22 12/07/22 fluoxetine 20 mg capsule 20 mg PO DAILY 12/07/22 12/07/22 furosemide 20 mg tablet 10 mg PO QAM 12/07/22 12/07/22 gabapentin 300 mg tablet 300 mg PO TID nerve pain 12/07/22 12/07/22 lanolin alcohols-mineral 1 applic topical DAILY 12/07/22 12/07/22 oil-w.petrolatum-ceresin topical cream (Eucerin topical cream) losartan 100 mg tablet 100 mg PO BEDTIME 12/07/22 12/07/22 metformin 500 mg tablet 500 mg PO BIDWMEAL 12/07/22 12/07/22 montelukast 10 mg tablet 10 mg PO DAILY 12/07/22 12/07/22 pantoprazole 40 mg tablet,delayed 40 mg PO DAILY 12/07/22 12/07/22 release tamsulosin 0.4 mg capsule 0.4 mg PO BEDTIME 12/07/22 12/07/22 terbinafine HCl 250 mg tablet See Rx Instructions .Route .COMPLEX 12/07/22 12/07/22 triamcinolone acetonide 0.1 % 1 applic topical BID PRN Rash 12/07/22 12/07/22 topical cream Previous Rx's Medication Instructions Recorded amoxicillin 500 mg-potassium 1 tab PO TID Pneumonia #18 tabs 12/09/22 clavulanate 125 mg tablet (Augmentin) melatonin 3 mg tablet 6 mg PO BEDTIME PRN Insomnia #30 12/09/22 tabs prednisone 20 mg tablet 20 mg PO DAILY wheezing #5 tabs 12/09/22 sennosides 8.6 mg tablet (senna) 8.6 mg PO BID PRN Constipation #30 12/09/22 tabs trazodone 50 mg tablet 25 mg PO BEDTIME PRN sleep #15 tabs 12/09/22 benzonatate 200 mg capsule 200 mg PO TID PRN cough #30 caps 12/31/22 Allergies Allergy/AdvReac Type Severity Reaction Status Date / Time sildenafil [From Viagra] Allergy Intermediate Flushing Verified 12/07/22 13:54 Review of Systems <Wilfrido Kirby PA-C - Last Filed: 12/31/22 20:30> Review of Systems ROS Unobtainable: All systems reviewed & are unremarkable except as noted in HPI and below Constitutional Constitutional: Denies chills, Reports fatigue, Denies fever(s), Denies frequent falls, Denies lethargy and Denies weakness Eyes Eyes: Denies change in vision, Denies eye discharge, Denies irritation and Denies loss of vision ENT Ears, Nose, Mouth, and Throat: Denies change in voice, Denies dizziness, Denies neck pain, Denies sore throat and Denies throat swelling Cardiovascular Cardiovascular: Denies chest pain, Denies irregular heart rhythm, Reports lightheadedness, Denies palpitations, Denies dyspnea, Denies dyspnea on exertion and Denies orthopnea Respiratory Respiratory: Reports cough, Denies dyspnea, Denies dyspnea on exertion and Denies wheezing Gastrointestinal Gastrointestinal: Denies abdominal pain, Denies change in bowel habits, Denies diarrhea, Denies nausea and Denies vomiting Genitourinary Genitourinary: Denies hematuria, Denies flank pain, Denies urinary incontinence and Denies urinary urgency Musculoskeletal Musculoskeletal: Denies back pain, Denies muscle weakness, Denies neck pain, Denies numbness and Denies tingling Integumentary/Breasts Skin/Breast: Denies pruritus, Denies erythema, Denies rash and Denies wounds Neurologic Neurologic: Denies behavioral changes, Denies confusion, Denies dizziness, Denies frequent falls, Denies loss of vision, Denies numbness, Denies tingling and Denies weakness Psychiatric Psychiatric: Denies anxiety, Denies behavioral changes, Denies confusion, Denies depression, Denies homicidal ideation and Denies suicidal ideation Endocrine Endocrine: Reports fatigue, Denies flushing and Denies palpitations Hematologic/Lymphatic Hematologic/Lymphatic: Denies easy bruising Allergic/Immunologic Allergic/Immunologic: Denies urticaria, Denies throat swelling and Denies wheezing Patient History <Wilfrido Kirby PA-C - Last Filed: 12/31/22 20:30> Medical History Diabetes Gout Hypertension Social History household members: spouse Smoking Status: Never smoker alcohol intake: never Smoking Status: Never smoker alcohol intake frequency: 0-2 drinks per day Substance Use Type: does not use Exam <Wilfrido Kirby PA-C - Last Filed: 12/31/22 20:30> Narrative Exam Narrative: Const General:?cooperative, healthy appearing and comfortable [facility] Head:?normal to inspection Ears:?hearing grossly normal bilaterally Nose:?external nose normal Face and sinus:?normal facial exam and sinuses nontender Mouth:?oral mucosae normal Throat:?posterior oropharynx normal Eyes General:?appearance normal, both eyes and all related structures Neck Neck:?normal visual inspection and no lymphadenopathy noted Resp Effort & Inspection:?normal respiratory effort Auscultation:?clear to auscultation bilaterally Cardio Rate:?regular rate Rhythm:?regular rhythm Neuro General:?patient alert, patient awake and patient oriented x3 Initial Vital Signs Initial Vital Signs: Vital Signs Temperature 98.7 F 12/31/22 15:17 Pulse Rate 67 12/31/22 15:17 Respiratory Rate 18 12/31/22 15:17 Blood Pressure 117/62 12/31/22 15:17 Pulse Oximetry 96 12/31/22 15:17 Oxygen Delivery Method Room Air 12/31/22 15:17 <Camryn Barrios DO - Last Filed: 01/02/23 02:30> Initial Vital Signs Initial Vital Signs: Vital Signs Temperature 98.7 F 12/31/22 15:17 Pulse Rate 67 12/31/22 15:17 Respiratory Rate 18 12/31/22 15:17 Blood Pressure 117/62 12/31/22 15:17 Pulse Oximetry 96 12/31/22 15:17 Oxygen Delivery Method Room Air 12/31/22 15:17 Course <Wilfrido Kirby PA-C - Last Filed: 12/31/22 20:30> Orders Ordered: Discontinued Medications Aspirin (Aspirin 81 Mg Chew Tab) 324 mg PO NOW ONE Stop: 12/31/22 15:22 Last Admin: 12/31/22 15:30 Dose: Not Given Documented By: AT Vital Signs Vital signs: Vital Signs - 8 hr 12/31/22 15:17 12/31/22 19:29 Temperature 98.7 F Pulse Rate 67 55 L Respiratory Rate 18 16 Blood Pressure 117/62 133/70 Pulse Oximetry 96 99 Oxygen Delivery Method Room Air Room Air <Camryn Barrios DO - Last Filed: 01/02/23 02:30> Orders Ordered: Discontinued Medications Aspirin (Aspirin 81 Mg Chew Tab) 324 mg PO NOW ONE Stop: 12/31/22 15:22 Last Admin: 12/31/22 15:30 Dose: Not Given Documented By: AT Vital Signs Vital signs: Vital Signs - 8 hr 12/31/22 15:17 12/31/22 19:29 Temperature 98.7 F Pulse Rate 67 55 L Respiratory Rate 18 16 Blood Pressure 117/62 133/70 Pulse Oximetry 96 99 Oxygen Delivery Method Room Air Room Air MDM - Chest Pain <Wilfrido Kirby PA-C - Last Filed: 12/31/22 20:30> Lab Data 12/31/22 15:22 12/31/22 15:22 Labs: Lab Results 12/31/22 12/31/22 12/31/22 Range/Units 15:22 15:22 15:22 WBC 4.9 (4.5-11.0) X10^3/uL RBC 4.37 L (4.5-5.9) X10^6/uL Hgb 12.8 L (13.5-17.5) g/dL Hct 38.1 L (41-53) % MCV 87.0 (80-100) fL MCH 29.2 (26-34) PG MCHC 33.6 (30-36) % RDW 14.5 (11.6-14.8) % Plt Count 162 (150-400) X10^3/uL Neut % (Auto) 57.8 (50-75) % Lymph % (Auto) 26.8 (25-40) % [place] % (Auto) 11.1 (3-14) % Eos % (Auto) 3.1 (2-4) % Baso % (Auto) 1.2 (0-2) % Neut # (Auto) 2900 (2995-5034) /uL Lymph # (Auto) 1300 (7313-0710) /uL [place] # (Auto) 500 (0-900) /uL Eos # (Auto) 200 (0-450) /uL Baso # (Auto) 100 (0-100) /uL PT 17.4 H (10.1-12.7) SECONDS INR 1.5 H (0.9-1.3) APTT 39 H (26-36) SECONDS Sodium 137 (137-145) mmol/L Potassium 4.5 (3.4-5.1) mmol/L Chloride 103 (98-107) mmol/L Carbon Dioxide 27 (22-32) mmol/L BUN 19 (9-20) mg/dL Creatinine 0.76 (0.66-1.25) mg/dL Estimated GFR > 60 (>60) mL/min BUN/Creatinine Ratio 25.0 H (6-22) Glucose 117 H (80-110) mg/dL Calcium 9.0 (8.4-10.2) mg/dL Magnesium 1.8 (1.6-2.3) mg/dL Total Bilirubin 0.7 (0.2-1.3) mg/dL AST 51 (17-59) IU/L ALT 62 H (<50) IU/L Alkaline Phosphatase 51 (38-126) U/L Total Creatine Kinase 107 (55-170) U/L CK-MB (CK-2) 1.14 (<2.37) ng/mL CK-MB (CK-2) Rel Index 1.1 L (1.5-5.0) % Troponin I < 0.012 (0.01-0.034) ng/mL Total Protein 7.5 (6.3-8.2) g/dL Albumin 4.3 (3.5-5.0) g/dL Globulin 3.2 (1.7-4.1) g/dL Albumin/Globulin Ratio 1.3 (1.0-2.8) Lipase 84 (23-300) U/L 12/31/22 Range/Units 17:30 WBC (4.5-11.0) X10^3/uL RBC (4.5-5.9) X10^6/uL Hgb (13.5-17.5) g/dL Hct (41-53) % MCV (80-100) fL MCH (26-34) PG MCHC (30-36) % RDW (11.6-14.8) % Plt Count (150-400) X10^3/uL Neut % (Auto) (50-75) % Lymph % (Auto) (25-40) % [place] % (Auto) (3-14) % Eos % (Auto) (2-4) % Baso % (Auto) (0-2) % Neut # (Auto) (3858-6810) /uL Lymph # (Auto) (0870-0538) /uL [place] # (Auto) (0-900) /uL Eos # (Auto) (0-450) /uL Baso # (Auto) (0-100) /uL PT (10.1-12.7) SECONDS INR (0.9-1.3) APTT (26-36) SECONDS Sodium (137-145) mmol/L Potassium (3.4-5.1) mmol/L Chloride (98-107) mmol/L Carbon Dioxide (22-32) mmol/L BUN (9-20) mg/dL Creatinine (0.66-1.25) mg/dL Estimated GFR (>60) mL/min BUN/Creatinine Ratio (6-22) Glucose (80-110) mg/dL Calcium (8.4-10.2) mg/dL Magnesium (1.6-2.3) mg/dL Total Bilirubin (0.2-1.3) mg/dL AST (17-59) IU/L ALT (<50) IU/L Alkaline Phosphatase (38-126) U/L Total Creatine Kinase 98 (55-170) U/L CK-MB (CK-2) TNP (<2.37) ng/mL CK-MB (CK-2) Rel Index TNP (1.5-5.0) % Troponin I < 0.012 (0.01-0.034) ng/mL Total Protein (6.3-8.2) g/dL Albumin (3.5-5.0) g/dL Globulin (1.7-4.1) g/dL Albumin/Globulin Ratio (1.0-2.8) Lipase (23-300) U/L MDM Narrative Medical decision making narrative: 67-year-old male with a history of AFib on Eliquis presents to the ED with 2 weeks of cough and fatigue. Concern for ACS versus pneumonia versus bronchitis versus URI versus other. Workup was obtained with EKG, chest x-ray, labs, troponin. Workup was largely unremarkable. Repeat troponin was negative as well. EKG was sinus rhythm with sinus arrhythmia with first-degree AV block. Lungs are clear to auscultation. Patient's symptoms likely due to acute bronchitis. Prescribed Tessalon Perles for cough. Recommend Delsym, continued hydration. ED return precautions were discussed with patient. Patient verbalized understanding. Medical records reviewed: Yes <Camryn Barrios DO - Last Filed: 01/02/23 02:30> Lab Data Labs: Lab Results 12/31/22 12/31/22 12/31/22 Range/Units 15:22 15:22 15:22 WBC 4.9 (4.5-11.0) X10^3/uL RBC 4.37 L (4.5-5.9) X10^6/uL Hgb 12.8 L (13.5-17.5) g/dL Hct 38.1 L (41-53) % MCV 87.0 (80-100) fL MCH 29.2 (26-34) PG MCHC 33.6 (30-36) % RDW 14.5 (11.6-14.8) % Plt Count 162 (150-400) X10^3/uL Neut % (Auto) 57.8 (50-75) % Lymph % (Auto) 26.8 (25-40) % [place] % (Auto) 11.1 (3-14) % Eos % (Auto) 3.1 (2-4) % Baso % (Auto) 1.2 (0-2) % Neut # (Auto) 2900 (7055-7861) /uL Lymph # (Auto) 1300 (3806-2814) /uL [place] # (Auto) 500 (0-900) /uL Eos # (Auto) 200 (0-450) /uL Baso # (Auto) 100 (0-100) /uL PT 17.4 H (10.1-12.7) SECONDS INR 1.5 H (0.9-1.3) APTT 39 H (26-36) SECONDS Sodium 137 (137-145) mmol/L Potassium 4.5 (3.4-5.1) mmol/L Chloride 103 (98-107) mmol/L Carbon Dioxide 27 (22-32) mmol/L BUN 19 (9-20) mg/dL Creatinine 0.76 (0.66-1.25) mg/dL Estimated GFR > 60 (>60) mL/min BUN/Creatinine Ratio 25.0 H (6-22) Glucose 117 H (80-110) mg/dL Calcium 9.0 (8.4-10.2) mg/dL Magnesium 1.8 (1.6-2.3) mg/dL Total Bilirubin 0.7 (0.2-1.3) mg/dL AST 51 (17-59) IU/L ALT 62 H (<50) IU/L Alkaline Phosphatase 51 (38-126) U/L Total Creatine Kinase 107 (55-170) U/L CK-MB (CK-2) 1.14 (<2.37) ng/mL CK-MB (CK-2) Rel Index 1.1 L (1.5-5.0) % Troponin I < 0.012 (0.01-0.034) ng/mL Total Protein 7.5 (6.3-8.2) g/dL Albumin 4.3 (3.5-5.0) g/dL Globulin 3.2 (1.7-4.1) g/dL Albumin/Globulin Ratio 1.3 (1.0-2.8) Lipase 84 (23-300) U/L 12/31/22 Range/Units 17:30 WBC (4.5-11.0) X10^3/uL RBC (4.5-5.9) X10^6/uL Hgb (13.5-17.5) g/dL Hct (41-53) % MCV (80-100) fL MCH (26-34) PG MCHC (30-36) % RDW (11.6-14.8) % Plt Count (150-400) X10^3/uL Neut % (Auto) (50-75) % Lymph % (Auto) (25-40) % [place] % (Auto) (3-14) % Eos % (Auto) (2-4) % Baso % (Auto) (0-2) % Neut # (Auto) (7402-5385) /uL Lymph # (Auto) (9519-2007) /uL [place] # (Auto) (0-900) /uL Eos # (Auto) (0-450) /uL Baso # (Auto) (0-100) /uL PT (10.1-12.7) SECONDS INR (0.9-1.3) APTT (26-36) SECONDS Sodium (137-145) mmol/L Potassium (3.4-5.1) mmol/L Chloride (98-107) mmol/L Carbon Dioxide (22-32) mmol/L BUN (9-20) mg/dL Creatinine (0.66-1.25) mg/dL Estimated GFR (>60) mL/min BUN/Creatinine Ratio (6-22) Glucose (80-110) mg/dL Calcium (8.4-10.2) mg/dL Magnesium (1.6-2.3) mg/dL Total Bilirubin (0.2-1.3) mg/dL AST (17-59) IU/L ALT (<50) IU/L Alkaline Phosphatase (38-126) U/L Total Creatine Kinase 98 (55-170) U/L CK-MB (CK-2) TNP (<2.37) ng/mL CK-MB (CK-2) Rel Index TNP (1.5-5.0) % Troponin I < 0.012 (0.01-0.034) ng/mL Total Protein (6.3-8.2) g/dL Albumin (3.5-5.0) g/dL Globulin (1.7-4.1) g/dL Albumin/Globulin Ratio (1.0-2.8) Lipase (23-300) U/L ECG Data Interpretation: Sophie-sinus rhythm rate 69 OK interval 216 QRS 92 QTC 413 T-wave inversion noted in AVR similar to previous Q-wave noted in lead 3 and AVF also similar to previous no acute changes Discharge Plan Departure Patient Disposition: Home Clinical Impression: Cough Instructions: DI for Cough -- Adult Activity Restrictions/Additional Instructions: You were evaluated in the ED today for a cough, chest tightness. Your workup including chest x-ray, EKG, labs were normal. Your symptoms are likely due to a lingering cough from the RSV infection. You are being prescribed Tessalon Perles via cough. You may also take Delsym which is [id number] for the cough. Please continue to stay well hydrated. Please follow-up with your PCP as soon as possible. Return to the ED if you have worsening chest pain, shortness of breath. Prescriptions: New benzonatate 200 mg capsule 200 mg PO TID PRN (Reason: cough) Qty: 30 0RF No Action atorvastatin 10 mg Tablet 10 mg PO DAILY amlodipine 2.5 mg Tablet 2.5 mg PO DAILY bisoprolol fumarate 5 mg Tablet 2.5 mg PO DAILY baclofen 10 mg Tablet 10 mg PO TID PRN (Reason: muscle spasms) allopurinol 300 mg Tablet 300 mg PO DAILY furosemide 20 mg Tablet 10 mg PO QAM fluoxetine 20 mg Capsule 20 mg PO DAILY finasteride 5 mg Tablet 5 mg PO DAILY gabapentin 300 mg Tablet 300 mg PO TID diclofenac sodium 1 % Gel 4 g TOPICAL BID PRN (Reason: Pain (Scale Score 1-3)) Eucerin Cream 1 applic TOPICAL DAILY metformin 500 mg Tablet 500 mg PO BIDWMEAL triamcinolone acetonide 0.1 % Cream 1 applic TOPICAL BID PRN (Reason: Rash) Rx Instructions: christiana;ly moderate amount to affected area bid as needed for skin condition terbinafine HCl 250 mg Tablet See Rx Instructions .ROUTE .COMPLEX Rx Instructions: take one tablet by mouth every daon on the first 7 days of each month. tamsulosin 0.4 mg Capsule 0.4 mg PO BEDTIME pantoprazole 40 mg Tablet,Delayed Release (Dr/Ec) 40 mg PO DAILY montelukast 10 mg Tablet 10 mg PO DAILY losartan 100 mg Tablet 100 mg PO BEDTIME sennosides [senna] 8.6 mg Tablet 8.6 mg PO BID PRN (Reason: Constipation) Qty: 30 0RF melatonin 3 mg Tablet 6 mg PO BEDTIME PRN (Reason: Insomnia) Qty: 30 0RF trazodone 50 mg tablet 25 mg PO BEDTIME MDD 25 mg PRN (Reason: sleep) Qty: 15 0RF prednisone 20 mg tablet 20 mg PO DAILY MDD 20mg Qty: 5 0RF Rx Instructions: Start on Dec 10 amoxicillin-pot clavulanate [Augmentin] 500-125 mg tablet 1 tab PO TID MDD 3 tablets Qty: 18 0RF Referrals: Ruddy Kinsey ARNP [Primary Care Provider] - Stand Alone Forms: Patient Portal/API <Camryn Barrios DO - Last Filed: 01/02/23 02:30> Cosign ED Attending Dylanature Attestation: I was immediately available in the department for consultation. Documentation has been reviewed.
== END 2022-12-31 19:30 | disposition home or self-care (01) ==
PROVIDERS: Emergency Medicine; Emergency Provider Student in an Organized Health Care Education/Training Program; PCP Nurse Practitioner Family
DX: R05.9 Cough, unspecified (principal); R07.9 Chest pain, unspecified
CPT/HCPCS: 36415; 71045; 80053; 82550; 82553; 83690; 83735; 84484; 85025; 85610; 85730; 93005; 93010; 99283; 99284

== ENCOUNTER 2024-02-10 14:00 | Emergency (ER) | payer OTHER, SELFPAY ==
[2022-12-07 17:07] VITALS: BMI 35.9
[2024-02-10] VITALS (10 sets, daily range): BP systolic 108–164; BP diastolic 58–86; PULSE 60–73; RESP 16–22; TEMP 36.6; O2SAT 94–99; BMI 31.4
--- NOTE | 2024-02-10 14:24 | DI.RAD.S_ITS ---
PROCEDURE: XR CHEST 1V INDICATIONS: chest pain TECHNIQUE: One view of the chest was acquired. COMPARISON: [facility], CR, XR CHEST 1V, 12/31/2022, 15:19. FINDINGS: Surgical changes and devices: None. Lungs and pleura: Lungs are clear. No pleural effusions or pneumothorax. Mediastinum: Mediastinal contours appear normal. Heart size is normal. Bones and chest wall: No suspicious bony lesions. Overlying soft tissues appear unremarkable. IMPRESSION: No acute cardiopulmonary abnormality is seen. Dictated by: Liliana Perez MD, PhD on 02/10/2024 at 14:59 Approved by: Liliana Perez MD, PhD on 02/10/2024 at 15:01
--- NOTE | 2024-02-10 14:29 | PC.NURSE ---
Pt reports feeling faint and was told by [facility] to come to ER
--- NOTE | 2024-02-10 14:29 | PC.NURSE ---
reports pt has lost weight recently and has not had his bp medicines adjusted.
[2024-02-10 14:44] LABS: INR 1.4 (0.9-1.3); Prothrombin Time 16.3 SECONDS (9.4-12.5)
[2024-02-10 14:45] LABS: Add Manual Diff / Slide Review NO; Basophils Absolute Auto 100 /uL (0-100); Basophils Percent Auto 0.9 % (0-2); Eosinophils Absolute Auto 200 /uL (0-450); Eosinophils Percent Auto 2.5 % (2-4); Hematocrit 40.1 % (41-53); Hemoglobin 13.3 g/dL (13.5-17.5); Lymphocytes Absolute Auto 1800 /uL (1100-4500); Lymphocytes Percent Auto 23.3 % (25-40); Mean Corpuscular HGB Conc 33.2 % (30-36); Mean Corpuscular Hemoglobin 29.7 PG (26-34); Mean Corpuscular Volume 89.4 fL (80-100); Monocytes Absolute Auto 700 /uL (0-900); Monocytes Percent Auto 8.3 % (3-14); Neutrophils Absolute Auto 5100 /uL (1500-7000); Platelet Count 217 X10^3/uL (150-400); Red Blood Cell Count 4.49 X10^6/uL (4.5-5.9); Red Cell Distribution Width 14.3 % (11.6-14.8); White Blood Cell Count 7.9 X10^3/uL (4.5-11.0)
[2024-02-10 14:46] LABS: PTT Partial Thromboplastin Tim 43 SECONDS (25.1-36.5)
[2024-02-10 14:49] LABS: Alanine Aminotransferase 43 IU/L (<50); Albumin 4.6 g/dL (3.5-5.0); Albumin Globulin Ratio 1.8 (1.0-2.8); Alkaline Phosphatase 64 U/L (38-126); Aspartate Aminotransferase 48 IU/L (17-59); BUN Creatinine Ratio 28.6 (6-22); Bilirubin Total 0.6 mg/dL (0.2-1.3); Blood Urea Nitrogen 20 mg/dL (9-20); Calcium 9.3 mg/dL (8.4-10.2); Carbon Dioxide 26 mmol/L (22-32); Chloride 105 mmol/L (98-107); Creatine Kinase 130 U/L (55-170); Estimated Glomerular Filt Rate > 60 mL/min (>60); Globulin 2.5 g/dL (1.7-4.1); Glucose 139 mg/dL (80-110); HEMOLYSIS 43 (0-50); Lipase 157 U/L (23-300); Potassium 4.5 mmol/L (3.4-5.1); Sodium 136 mmol/L (137-145); Total Protein 7.1 g/dL (6.3-8.2)
[2024-02-10 14:59] LABS: Troponin I < 0.012 ng/mL (0.01-0.034)
[2024-02-10 17:24] LABS: Troponin I < 0.012 ng/mL (0.01-0.034)
--- NOTE | 2024-02-10 18:00 | ED.SYNCOPE ---
HPI - Syncope General Chief Complaint: Syncope Stated Complaint: Post syncope event, Dr sent he in. Time Seen by Provider: 02/10/24 17:41 Source: patient Mode of arrival: Ambulatory History of Present Illness HPI narrative: 68-year-old male with history of AFib on Eliquis, hypertension, prediabetes presents by private vehicle from home for evaluation after a syncopal episode 3 days prior. Patient states that he was sitting at the table eating a sandwich when he felt like food got caught in his throat. He states that this will occasionally happened to him and he has to drink something to get the food down. He states that the food got caught in his throat and he felt like he could not breathe. He got up to go to the refrigerator and pulled out a glass of milk. He states that he felt very lightheaded and the next thing he knew he was on the ground with milk spilled around him. Today patient told his primary care doctor about this episode and he was referred to the ER for evaluation. Prior to his syncopal episode he denies chest pain, abdominal pain, other complaints. Patient has had recent echocardiogram prior to receiving shoulder replacement surgery. He states he was told his echocardiogram was normal. Patient reports frequently getting lightheaded, particularly when bending down and has had to be careful to avoid falling. He states that he was on a weight loss drug called phentermine and he has lost 30 lb. He has noticed that his blood pressure is trending down words and he has been in talks with his primary care doctor about decreasing his doses of bisoprolol. Related Data Home Medications Medication Instructions Recorded Confirmed allopurinol 300 mg tablet 300 mg PO DAILY 12/07/22 12/07/22 amlodipine 2.5 mg tablet 2.5 mg PO DAILY 12/07/22 12/07/22 atorvastatin 10 mg tablet 10 mg PO DAILY 12/07/22 12/07/22 baclofen 10 mg tablet 10 mg PO TID PRN muscle spasms 12/07/22 12/07/22 bisoprolol fumarate 5 mg tablet 2.5 mg PO DAILY 12/07/22 12/07/22 diclofenac sodium 1 % topical gel 4 g topical BID PRN Pain (Scale 12/07/22 12/07/22 Score 1-3) finasteride 5 mg tablet 5 mg PO DAILY 12/07/22 12/07/22 fluoxetine 20 mg capsule 20 mg PO DAILY 12/07/22 12/07/22 furosemide 20 mg tablet 10 mg PO QAM 12/07/22 12/07/22 gabapentin 300 mg tablet 300 mg PO TID nerve pain 12/07/22 12/07/22 lanolin alcohols-mineral 1 applic topical DAILY 12/07/22 12/07/22 oil-w.petrolatum-ceresin topical cream (Eucerin topical cream) losartan 100 mg tablet 100 mg PO BEDTIME 12/07/22 12/07/22 metformin 500 mg tablet 500 mg PO BIDWMEAL 12/07/22 12/07/22 montelukast 10 mg tablet 10 mg PO DAILY 12/07/22 12/07/22 pantoprazole 40 mg tablet,delayed 40 mg PO DAILY 12/07/22 12/07/22 release tamsulosin 0.4 mg capsule 0.4 mg PO BEDTIME 12/07/22 12/07/22 terbinafine HCl 250 mg tablet See Rx Instructions .Route .COMPLEX 12/07/22 12/07/22 triamcinolone acetonide 0.1 % 1 applic topical BID PRN Rash 12/07/22 12/07/22 topical cream Previous Rx's Medication Instructions Recorded amoxicillin 500 mg-potassium 1 tab PO TID Pneumonia #18 tabs 12/09/22 clavulanate 125 mg tablet (Augmentin) melatonin 3 mg tablet 6 mg (2 x 3 mg) PO BEDTIME PRN 12/09/22 Insomnia #30 tabs prednisone 20 mg tablet 20 mg PO DAILY wheezing #5 tabs 12/09/22 sennosides 8.6 mg tablet (senna) 8.6 mg PO BID PRN Constipation #30 12/09/22 tabs trazodone 50 mg tablet 25 mg (1/2 x 50 mg) PO BEDTIME PRN 12/09/22 sleep #15 tabs benzonatate 200 mg capsule 200 mg PO TID PRN cough #30 caps 12/31/22 Allergies Allergy/AdvReac Type Severity Reaction Status Date / Time sildenafil [From Viagra] Allergy Intermediate Flushing Verified 02/10/24 14:23 Review of Systems Review of Systems Narrative: See HPI Patient History Medical History (Updated 02/11/24 @ 02:36 by Laura Montalvo MD) Gout Diabetes Hypertension Social History household members: spouse Smoking Status: Never smoker alcohol intake: never Smoking Status: Never smoker alcohol intake frequency: 0-2 drinks per day Substance Use Type: does not use Exam Initial Vital Signs Initial Vital Signs: Vital Signs Temperature 98 F 02/10/24 14:20 Pulse Rate 73 02/10/24 14:20 Respiratory Rate 16 02/10/24 14:20 Blood Pressure 108/58 L 02/10/24 14:20 Pulse Oximetry 96 02/10/24 14:20 Oxygen Delivery Method Room Air 02/10/24 14:20 Const: Awake, alert, no acute distress, nontoxic appearing Cardiac: regular rate, regular rhythm RESP: unlabored, clear bilaterally, no wheezing GI: Soft, nontender, nondistended, no rebound, no guarding MSK: Atraumatic, full range of motion, pulses equal Skin: Warm, Dry, intact, no rashes Neuro: AO x3, CN II-XII grossly intact, moves all extremities Course Orders Ordered: ED Orders 02/10/24 18:16 CT head/brain wo con Stat Discontinued Medications Aspirin (Aspirin 81 Mg Chew Tab) 324 mg PO NOW ONE Stop: 02/10/24 14:25 Last Admin: 02/10/24 15:19 Dose: Not Given Documented By: SPF Sodium Chloride (Normal Saline 0.9%) 1,000 mls @ 1,000 mls/hr IV BOLUS ONE Stop: 02/10/24 19:15 Last Admin: 02/10/24 18:24 Dose: 1,000 mls/hr Documented By: KW Vital Signs Vital signs: Vital Signs - 8 hr 02/10/24 20:52 Pulse Rate 60 Respiratory Rate 16 Blood Pressure 164/86 H Pulse Oximetry 99 Oxygen Delivery Method Room Air MDM - Syncope Differential Diagnosis Differential diagnosis: Likely syncope due to orthostatic hypotension, vasovagal syncope and complete atrioventricular block Lab Data 02/10/24 14:24 02/10/24 14:24 Labs: Lab Results 02/10/24 02/10/24 Range/Units 14:24 16:28 WBC 7.9 (4.5-11.0) X10^3/uL RBC 4.49 L (4.5-5.9) X10^6/uL Hgb 13.3 L (13.5-17.5) g/dL Hct 40.1 L (41-53) % MCV 89.4 (80-100) fL MCH 29.7 (26-34) PG MCHC 33.2 (30-36) % RDW 14.3 (11.6-14.8) % Plt Count 217 (150-400) X10^3/uL Neut % (Auto) 65.0 (50-75) % Lymph % (Auto) 23.3 L (25-40) % [place] % (Auto) 8.3 (3-14) % Eos % (Auto) 2.5 (2-4) % Baso % (Auto) 0.9 (0-2) % Neut # (Auto) 5100 (8271-3879) /uL Lymph # (Auto) 1800 (9846-3491) /uL [place] # (Auto) 700 (0-900) /uL Eos # (Auto) 200 (0-450) /uL Baso # (Auto) 100 (0-100) /uL PT 16.3 H (9.4-12.5) SECONDS INR 1.4 H (0.9-1.3) APTT 43 H (25.1-36.5) SECONDS Sodium 136 L (137-145) mmol/L Potassium 4.5 (3.4-5.1) mmol/L Chloride 105 (98-107) mmol/L Carbon Dioxide 26 (22-32) mmol/L BUN 20 (9-20) mg/dL Creatinine 0.70 (0.66-1.25) mg/dL Estimated GFR > 60 (>60) mL/min BUN/Creatinine Ratio 28.6 H (6-22) Glucose 139 H (80-110) mg/dL Calcium 9.3 (8.4-10.2) mg/dL Magnesium 2.0 (1.6-2.3) mg/dL Total Bilirubin 0.6 (0.2-1.3) mg/dL AST 48 (17-59) IU/L ALT 43 (<50) IU/L Alkaline Phosphatase 64 (38-126) U/L Total Creatine Kinase 130 (55-170) U/L Troponin I < 0.012 < 0.012 (0.01-0.034) ng/mL Total Protein 7.1 (6.3-8.2) g/dL Albumin 4.6 (3.5-5.0) g/dL Globulin 2.5 (1.7-4.1) g/dL Albumin/Globulin Ratio 1.8 (1.0-2.8) Lipase 157 (23-300) U/L Imaging Data Chest x-ray: Radiologist's Impression: PROCEDURE: XR CHEST 1V INDICATIONS: chest pain TECHNIQUE: One view of the chest was acquired. COMPARISON: [facility], , XR CHEST 1V, 12/31/2022, 15:19. FINDINGS: Surgical changes and devices: None. Lungs and pleura: Lungs are clear. No pleural effusions or pneumothorax. Mediastinum: Mediastinal contours appear normal. Heart size is normal. Bones and chest wall: No suspicious bony lesions. Overlying soft tissues appear unremarkable. IMPRESSION: No acute cardiopulmonary abnormality is seen. Dictated by: Liliana Perez MD, PhD on 02/10/2024 at 14:59 Approved by: Liliana Perez MD, PhD on 02/10/2024 at 15:01 CT scan - head: Radiologist's Impression: PROCEDURE: CT HEAD/BRAIN WO CON INDICATIONS: syncope, head trauma, on eliquis TECHNIQUE: Noncontrast 4.5 mm thick angled axial sections acquired from the foramen magnum to the vertex, with coronal and sagittal reformats. For radiation dose reduction, the following was used: automated exposure control, adjustment of mA and/or kV according to patient size. COMPARISON: None. FINDINGS: Image quality: Diagnostic. CSF spaces: Basal cisterns are patent. No extra-axial fluid collections. Ventricles are normal in size and shape. Brain: No midline shift. No intracranial masses or hemorrhage. Head-white matter interface is normal. Skull and face: Calvarium and visualized facial bones are intact, without suspicious lesions. Sinuses: Visualized sinuses and mastoids are clear. IMPRESSION: No acute intracranial pathology. Approved by: Tamiko Trujillo M.D.,Ph.D. on 02/10/2024 at 19:13 ECG Data Interpretation: Normal sinus rhythm at 62 beats per minute. Normal QTC, no ST T wave changes MDM Narrative Medical decision making narrative: Well-appearing patient with what sounds to be either vasovagal or orthostatic syncope after having a food bolus and getting up from the table rapidly. Reports recent cardiovascular evaluation at [facility] within the last several months prior to receiving shoulder replacement surgery. Patient does state that he has had a persistent headache since his head injury and is on Eliquis due to paroxysmal atrial fibrillation. We will order CT scan. Laboratory work is reviewed, unremarkable. WBC count 7.9, hemoglobin 13.3, platelets 217, sodium 136, potassium 4.5, creatinine 0.7, troponin undetectable x2. EKG sinus rhythm without ischemic findings or QT prolongation. Patient was given IV fluids and orthostatic vital signs were reassuring. Patient and spouse at bedside informed of all lab and imaging findings as well as possible diagnosis vasovagal or orthostatic syncope. Patient praised on his weight loss and recommended following up with PCP to see if his blood pressure medications should be decreased, as this may be contributing to his positional lightheadedness and possibly his syncopal event several days ago. Discharge Plan Departure Patient Disposition: Home Clinical Impression: Syncope Instructions: DI for Syncope in Adults (Fainting) Activity Restrictions/Additional Instructions: Make sure to stay hydrated, be cautious when changing position to avoid big changes in your blood pressure. Follow up with your primary care physician Prescriptions: No Action atorvastatin 10 mg Tablet 10 mg PO DAILY amlodipine 2.5 mg Tablet 2.5 mg PO DAILY bisoprolol fumarate 5 mg Tablet 2.5 mg PO DAILY baclofen 10 mg Tablet 10 mg PO TID PRN (Reason: muscle spasms) allopurinol 300 mg Tablet 300 mg PO DAILY furosemide 20 mg Tablet 10 mg PO QAM fluoxetine 20 mg Capsule 20 mg PO DAILY finasteride 5 mg Tablet 5 mg PO DAILY gabapentin 300 mg Tablet 300 mg PO TID diclofenac sodium 1 % Gel 4 g TOPICAL BID PRN (Reason: Pain (Scale Score 1-3)) Eucerin Cream 1 applic TOPICAL DAILY metformin 500 mg Tablet 500 mg PO BIDWMEAL triamcinolone acetonide 0.1 % Cream 1 applic TOPICAL BID PRN (Reason: Rash) Rx Instructions: christiana;ly moderate amount to affected area bid as needed for skin condition terbinafine HCl 250 mg Tablet See Rx Instructions .ROUTE .COMPLEX Rx Instructions: take one tablet by mouth every daon on the first 7 days of each month. tamsulosin 0.4 mg Capsule 0.4 mg PO BEDTIME pantoprazole 40 mg Tablet,Delayed Release (Dr/Ec) 40 mg PO DAILY montelukast 10 mg Tablet 10 mg PO DAILY losartan 100 mg Tablet 100 mg PO BEDTIME sennosides [senna] 8.6 mg Tablet 8.6 mg PO BID PRN (Reason: Constipation) Qty: 30 0RF melatonin 3 mg Tablet 6 mg PO BEDTIME PRN (Reason: Insomnia) Qty: 30 0RF trazodone 50 mg tablet 25 mg PO BEDTIME MDD 25 mg PRN (Reason: sleep) Qty: 15 0RF prednisone 20 mg tablet 20 mg PO DAILY MDD 20mg Qty: 5 0RF Rx Instructions: Start on Dec 10 amoxicillin-pot clavulanate [Augmentin] 500-125 mg tablet 1 tab PO TID MDD 3 tablets Qty: 18 0RF benzonatate 200 mg capsule 200 mg PO TID PRN (Reason: cough) Qty: 30 0RF Referrals: Ruddy Kinsey ARNP [Primary Care Provider] - Stand Alone Forms: Patient Portal/API
--- NOTE | 2024-02-10 18:16 | DI.CT.S_ITS ---
PROCEDURE: CT HEAD/BRAIN WO CON INDICATIONS: syncope, head trauma, on eliquis TECHNIQUE: Noncontrast 4.5 mm thick angled axial sections acquired from the foramen magnum to the vertex, with coronal and sagittal reformats. For radiation dose reduction, the following was used: automated exposure control, adjustment of mA and/or kV according to patient size. COMPARISON: None. FINDINGS: Image quality: Diagnostic. CSF spaces: Basal cisterns are patent. No extra-axial fluid collections. Ventricles are normal in size and shape. Brain: No midline shift. No intracranial masses or hemorrhage. Head-white matter interface is normal. Skull and face: Calvarium and visualized facial bones are intact, without suspicious lesions. Sinuses: Visualized sinuses and mastoids are clear. IMPRESSION: No acute intracranial pathology. Approved by: Tamiko Trujillo M.D.,Ph.D. on 02/10/2024 at 19:13
[2024-02-10] MEDS: SODIUM CHLORIDE 0.9% 1,000 ML 1000 ML IV (18:24)
--- NOTE | 2024-02-10 19:02 | PC.NURSE ---
Feeling faint; states he has not had a recent episode of this.
== END 2024-02-10 20:04 | disposition home or self-care (01) ==
PROVIDERS: Emergency Medicine; Emergency Provider Emergency Medicine; PCP Nurse Practitioner Family
DX: R55 Syncope and collapse (principal)
CPT/HCPCS: 36415; 70450; 71045; 80053; 82550; 83690; 83735; 84484; 85025; 85610; 85730; 93005; 99284

== ENCOUNTER 2024-03-14 11:25 | Emergency (ER) | payer OTHER, SELFPAY ==
[2022-12-07 17:07] VITALS: BMI 35.9
[2024-03-14] VITALS (23 sets, daily range): BP systolic 84–129; BP diastolic 52–68; PULSE 65–80; RESP 14–21; TEMP 37; O2SAT 95–98; BMI 31.7
--- NOTE | 2024-03-14 11:35 | DI.RAD.S_ITS ---
PROCEDURE: XR CHEST 1V INDICATIONS: suspected sepsis TECHNIQUE: One view of the chest was acquired. COMPARISON: [facility], CR, XR CHEST 1V, 02/10/2024, 14:26. FINDINGS: Surgical changes and devices: None. Lungs and pleura: Lungs are clear. No pleural effusions or pneumothorax. Mediastinum: Mediastinal contours appear normal. Heart size is normal. Bones and chest wall: No suspicious bony lesions. Overlying soft tissues appear unremarkable. IMPRESSION: No acute cardiopulmonary abnormality is seen. Approved by: Tamiko Trujillo M.D.,Ph.D. on 03/14/2024 at 12:00
[2024-03-14] MEDS: SODIUM CHLORIDE 0.9% 1,000 ML 1000 ML IV (11:53)
[2024-03-14 11:58] LABS: Add Manual Diff / Slide Review NO; Basophils Absolute Auto 100 /uL (0-100); Basophils Percent Auto 0.3 % (0-2); Eosinophils Absolute Auto 0 /uL (0-450); Eosinophils Percent Auto 0.2 % (2-4); Hematocrit 41.2 % (41-53); Hemoglobin 13.5 g/dL (13.5-17.5); Lymphocytes Absolute Auto 1600 /uL (1100-4500); Lymphocytes Percent Auto 7.6 % (25-40); Mean Corpuscular HGB Conc 32.8 % (30-36); Mean Corpuscular Hemoglobin 29.6 PG (26-34); Mean Corpuscular Volume 90.1 fL (80-100); Monocytes Absolute Auto 1800 /uL (0-900); Monocytes Percent Auto 8.7 % (3-14); Neutrophils Absolute Auto 17400 /uL (1500-7000); Neutrophils Percent Auto 83.2 % (50-75); Platelet Count 190 X10^3/uL (150-400); Red Blood Cell Count 4.57 X10^6/uL (4.5-5.9); Red Cell Distribution Width 14.5 % (11.6-14.8); White Blood Cell Count 20.9 X10^3/uL (4.5-11.0)
[2024-03-14 12:03] LABS: Prothrombin Time 23.4 SECONDS (9.4-12.5)
[2024-03-14 12:05] LABS: PTT Partial Thromboplastin Tim 44 SECONDS (25.1-36.5)
[2024-03-14 12:07] LABS: Alanine Aminotransferase 39 IU/L (<50); Albumin 4.5 g/dL (3.5-5.0); Albumin Globulin Ratio 1.4 (1.0-2.8); Alkaline Phosphatase 88 U/L (38-126); Aspartate Aminotransferase 28 IU/L (17-59); BUN Creatinine Ratio 22.4 (6-22); Blood Urea Nitrogen 19 mg/dL (9-20); Calcium 9.2 mg/dL (8.4-10.2); Carbon Dioxide 24 mmol/L (22-32); Chloride 105 mmol/L (98-107); Estimated Glomerular Filt Rate > 60 mL/min (>60); Globulin 3.3 g/dL (1.7-4.1); Glucose 155 mg/dL (80-110); HEMOLYSIS < 15 (0-50); Lipase 78 U/L (23-300); Sodium 137 mmol/L (137-145); Total Protein 7.8 g/dL (6.3-8.2)
[2024-03-14 12:08] LABS: Lactate (Lactic Acid) 1.3 mmol/L (0.7-2.1)
[2024-03-14 12:23] LABS: Procalcitonin 0.113 ng/mL (<0.5)
[2024-03-14 12:45] LABS: Adenovirus Not Detected (Not Detect); B. parapertussis Not Detected (Not Detecte); Bordetella pertussis Not Detected (Not Detect); Chlamydophila pneumoniae Not Detected (Not Detect); Coronavirus 229E Not Detected (Not Detect); Coronavirus HKU1 Not Detected (Not Detect); Coronavirus NL 63 Not Detected (Not Detect); Coronavirus OC43 Not Detected (Not Detect); Human Metapneumovirus Not Detected (Not Detect); Human Rhinovirus/Enterovirus Not Detected (Not Detect); Influenza A Not Detected (Not Detect); Influenza B Not Detected (Not Detect); Mycoplasma pneumoniae Not Detected (Not Detect); Parainfluenza Virus 1 Not Detected (Not Detect); Parainfluenza Virus 2 Not Detected (Not Detect); Parainfluenza Virus 3 Not Detected (Not Detect); Parainfluenza Virus 4 Not Detected (Not Detect); Respiratory Syncytial Virus Not Detected (Not Detect); SARS- CoV-2 Not Detected (Not Detecte)
[2024-03-14 13:06] LABS: NT-proBNP (BNP-Adult 18+) 28 pg/mL (<125); Troponin I < 0.012 ng/mL (0.01-0.034)
--- NOTE | 2024-03-14 14:35 | ED.DIZZY ---
HPI - Dizziness General Chief Complaint: Dizziness Stated Complaint: Sore throat, Dizzyness, Fever Time Seen by Provider: 03/14/24 14:35 Source: patient Mode of arrival: Ambulatory History of Present Illness HPI Narrative: 68-year-old male complains of 2 days' duration sore throat, cough productive of dark green sputum. Some dizziness. No nausea or vomiting. No diarrhea. No painful urination or frequent urination, no bloody appearing urine. No weakness or numbness to face arm or leg. Some dizziness, concern he might be dehydrated Related Data Home Medications Medication Instructions Recorded Confirmed allopurinol 300 mg tablet 300 mg PO DAILY 12/07/22 12/07/22 amlodipine 2.5 mg tablet 2.5 mg PO DAILY 12/07/22 12/07/22 atorvastatin 10 mg tablet 10 mg PO DAILY 12/07/22 12/07/22 baclofen 10 mg tablet 10 mg PO TID PRN muscle spasms 12/07/22 12/07/22 bisoprolol fumarate 5 mg tablet 2.5 mg PO DAILY 12/07/22 12/07/22 diclofenac sodium 1 % topical gel 4 g topical BID PRN Pain (Scale 12/07/22 12/07/22 Score 1-3) finasteride 5 mg tablet 5 mg PO DAILY 12/07/22 12/07/22 fluoxetine 20 mg capsule 20 mg PO DAILY 12/07/22 12/07/22 furosemide 20 mg tablet 10 mg PO QAM 12/07/22 12/07/22 gabapentin 300 mg tablet 300 mg PO TID nerve pain 12/07/22 12/07/22 lanolin alcohols-mineral 1 applic topical DAILY 12/07/22 12/07/22 oil-w.petrolatum-ceresin topical cream (Eucerin topical cream) losartan 100 mg tablet 100 mg PO BEDTIME 12/07/22 12/07/22 metformin 500 mg tablet 500 mg PO BIDWMEAL 12/07/22 12/07/22 montelukast 10 mg tablet 10 mg PO DAILY 12/07/22 12/07/22 pantoprazole 40 mg tablet,delayed 40 mg PO DAILY 12/07/22 12/07/22 release tamsulosin 0.4 mg capsule 0.4 mg PO BEDTIME 12/07/22 12/07/22 terbinafine HCl 250 mg tablet See Rx Instructions .Route .COMPLEX 12/07/22 12/07/22 triamcinolone acetonide 0.1 % 1 applic topical BID PRN Rash 12/07/22 12/07/22 topical cream Previous Rx's Medication Instructions Recorded amoxicillin 500 mg-potassium 1 tab PO TID Pneumonia #18 tabs 12/09/22 clavulanate 125 mg tablet (Augmentin) melatonin 3 mg tablet 6 mg (2 x 3 mg) PO BEDTIME PRN 12/09/22 Insomnia #30 tabs prednisone 20 mg tablet 20 mg PO DAILY wheezing #5 tabs 12/09/22 sennosides 8.6 mg tablet (senna) 8.6 mg PO BID PRN Constipation #30 12/09/22 tabs trazodone 50 mg tablet 25 mg (1/2 x 50 mg) PO BEDTIME PRN 12/09/22 sleep #15 tabs benzonatate 200 mg capsule 200 mg PO TID PRN cough #30 caps 12/31/22 azithromycin 250 mg tablet See Rx Instructions PO .COMPLEX #6 03/14/24 tabs Allergies Allergy/AdvReac Type Severity Reaction Status Date / Time sildenafil [From Viagra] Allergy Intermediate Flushing Verified 02/10/24 14:23 Patient History Medical History Gout Diabetes Hypertension Social History household members: spouse Smoking Status: Never smoker alcohol intake: never Smoking Status: Never smoker alcohol intake frequency: 0-2 drinks per day Substance Use Type: does not use Exam Initial Vital Signs Initial Vital Signs: Vital Signs Temperature 98.6 F 03/14/24 11:30 Pulse Rate 80 03/14/24 11:30 Respiratory Rate 18 03/14/24 11:30 Blood Pressure 84/52 L 03/14/24 11:30 Pulse Oximetry 97 03/14/24 11:30 Oxygen Delivery Method Room Air 03/14/24 11:30 Const General: cooperative HENMT Head: normocephalic and atraumatic Ears: TM's normal bilaterally Nose: external nose normal Face and sinus: face symmetric Mouth: oral mucosae normal Throat: tonsils normal Eyes Eyelids: eyelids normal Conjunctivae: conjunctivae normal Sclera: sclerae normal Pupils: PERRL EOM: EOM intact bilaterally Neck Neck: normal visual inspection, trachea midline and No lymphadenopathy Chest Chest: normal inspection of the chest Resp Effort & Inspection: normal respiratory effort, able to speak in complete sentences, no respiratory distress and no use of accessory muscles Auscultation: clear to auscultation bilaterally, no rales, no rhonchi and no wheezes Cardio Rate: regular rate Rhythm: regular rhythm Heart Sounds: no murmurs GI Inspection: non-distended Palpation: soft, no hepatosplenomegaly and No tender Back/Spine/Pelvis Back: No CVA tenderness Thoracic/Lumbar Spine: thoracic and lumbar spine normal to inspection Skin General: no rashes or lesions noted and No jaundice Neuro General: patient alert and no focal motor deficits Extrem General: no pedal edema and no calf tenderness Psych Attitude: cooperative Course Orders Ordered: Discontinued Medications Azithromycin (Azithromycin 250 Mg Tablet) 500 mg PO NOW ONE Stop: 03/14/24 16:47 Last Admin: 03/14/24 17:09 Dose: 500 mg Documented By: TOMASA Sodium Chloride (Normal Saline 0.9%) 1,000 mls @ 1,000 mls/hr IV BOLUS ONE Stop: 03/14/24 12:34 Last Infusion: 03/14/24 12:57 Dose: Infused Documented By: Admin: 03/14/24 11:53 Dose: 1,000 mls/hr Documented By: SARI Sodium Chloride (Normal Saline 0.9%) 1,000 mls @ 1,000 mls/hr IV BOLUS ONE Stop: 03/14/24 17:43 Ceftriaxone Sodium 1,000 mg/ (Sodium Chloride) 100 mls @ 200 mls/hr IV NOW ONE Stop: 03/14/24 16:46 Last Infusion: 03/14/24 18:15 Dose: Infused Documented By: Admin: 03/14/24 17:09 Dose: 200 mls/hr Documented By: TOMASA Ondansetron HCl (Ondansetron 4 Mg/2 Ml Inj) 4 mg IV NOW PRN PRN Reason: Nausea And Vomiting Ondansetron HCl (Ondansetron 4 Mg Odt) 4 mg SL NOW PRN PRN Reason: Nausea And Vomiting Vital Signs Vital signs: Vital Signs - 8 hr 03/14/24 15:27 03/14/24 15:30 03/14/24 15:30 Pulse Rate 73 69 Respiratory Rate 18 Blood Pressure 110/63 Pulse Oximetry 97 97 03/14/24 15:45 03/14/24 15:45 03/14/24 16:00 Pulse Rate 68 Respiratory Rate 16 Blood Pressure 114/63 115/62 Pulse Oximetry 96 03/14/24 16:00 03/14/24 16:15 03/14/24 16:15 Pulse Rate 69 71 Respiratory Rate 17 19 Blood Pressure 107/63 Pulse Oximetry 95 96 03/14/24 16:30 03/14/24 16:30 03/14/24 16:45 Pulse Rate 72 Respiratory Rate 16 Blood Pressure 113/59 L 118/61 Pulse Oximetry 97 03/14/24 16:45 03/14/24 17:00 03/14/24 17:30 Pulse Rate 69 72 71 Respiratory Rate 16 18 20 Blood Pressure Pulse Oximetry 97 97 03/14/24 17:31 03/14/24 17:31 03/14/24 18:00 Pulse Rate 72 74 Respiratory Rate 21 20 Blood Pressure 119/68 Pulse Oximetry 97 96 03/14/24 18:00 03/14/24 18:30 03/14/24 18:30 Pulse Rate 75 Respiratory Rate 18 Blood Pressure 129/58 L 117/62 Pulse Oximetry 97 MDM - Dizziness Lab Data 03/14/24 11:46 03/14/24 11:46 Labs: Lab Results 03/14/24 Range/Units 11:46 WBC 20.9 H (4.5-11.0) X10^3/uL RBC 4.57 (4.5-5.9) X10^6/uL Hgb 13.5 (13.5-17.5) g/dL Hct 41.2 (41-53) % MCV 90.1 (80-100) fL MCH 29.6 (26-34) PG MCHC 32.8 (30-36) % RDW 14.5 (11.6-14.8) % Plt Count 190 (150-400) X10^3/uL Neut % (Auto) 83.2 H (50-75) % Lymph % (Auto) 7.6 L (25-40) % [place] % (Auto) 8.7 (3-14) % Eos % (Auto) 0.2 L (2-4) % Baso % (Auto) 0.3 (0-2) % Neut # (Auto) 20873 H (3352-3863) /uL Lymph # (Auto) 1600 (7063-8406) /uL [place] # (Auto) 1800 H (0-900) /uL Eos # (Auto) 0 (0-450) /uL Baso # (Auto) 100 (0-100) /uL PT 23.4 H (9.4-12.5) SECONDS INR 2.0 H (0.9-1.3) APTT 44 H (25.1-36.5) SECONDS Sodium 137 (137-145) mmol/L Potassium 4.0 (3.4-5.1) mmol/L Chloride 105 (98-107) mmol/L Carbon Dioxide 24 (22-32) mmol/L BUN 19 (9-20) mg/dL Creatinine 0.85 (0.66-1.25) mg/dL Estimated GFR > 60 (>60) mL/min BUN/Creatinine Ratio 22.4 H (6-22) Glucose 155 H (80-110) mg/dL Lactate 1.3 (0.7-2.1) mmol/L Calcium 9.2 (8.4-10.2) mg/dL Total Bilirubin 1.0 (0.2-1.3) mg/dL AST 28 (17-59) IU/L ALT 39 (<50) IU/L Alkaline Phosphatase 88 (38-126) U/L Troponin I < 0.012 (0.01-0.034) ng/mL NT-Pro-B Natriuret Pep 28 (<125) pg/mL Total Protein 7.8 (6.3-8.2) g/dL Albumin 4.5 (3.5-5.0) g/dL Globulin 3.3 (1.7-4.1) g/dL Albumin/Globulin Ratio 1.4 (1.0-2.8) Lipase 78 (23-300) U/L Procalcitonin 0.113 (<0.5) ng/mL Chlamy pneumoniae PCR Not detected (Not Detect) Adenovirus (PCR) Not detected (Not Detect) B.parapertussis DNA PCR Not detected (Not Detecte) Coronavirus OC43 (PCR) Not detected (Not Detect) Coronavirus HKU1 (PCR) Not detected (Not Detect) Coronavirus 229E (PCR) Not detected (Not Detect) SARS-CoV-2 (PCR) Not detected (Not Detecte) Coronavirus NL63 (PCR) Not detected (Not Detect) Human Metapneumovir PCR Not detected (Not Detect) Influenza Type A (PCR) Not detected (Not Detect) Influenza Type B (PCR) Not detected (Not Detect) M. pneumoniae (PCR) Not detected (Not Detect) Parainfluenza 1 (PCR) Not detected (Not Detect) Parainfluenza 2 (PCR) Not detected (Not Detect) Parainfluenza 3 (PCR) Not detected (Not Detect) Parainfluenza 4 (PCR) Not detected (Not Detect) RSV (PCR) Not detected (Not Detect) Entero/Rhino (PCR) Not detected (Not Detect) Imaging Data Chest x-ray: Radiologist's Impression: Close Chest X-Ray (Signed) Tamiko Trujillo - 03/14/24 Launch?[place] [address] XRay Report Signed Patient: Asif Asencio MR#: [id number] : 1955 Acct:[id number] Age/Sex: 68 / M Date of Service: 03/14/24 Loc: ED Accession Number: [id number] Procedure: XR chest 1V Ordering Provider: Sixto Thao MD PROCEDURE: XR CHEST 1V INDICATIONS: suspected sepsis TECHNIQUE: One view of the chest was acquired. COMPARISON: [facility], , XR CHEST 1V, 02/10/2024, 14:26. FINDINGS: Surgical changes and devices: None. Lungs and pleura: Lungs are clear. No pleural effusions or pneumothorax. Mediastinum: Mediastinal contours appear normal. Heart size is normal. Bones and chest wall: No suspicious bony lesions. Overlying soft tissues appear unremarkable. IMPRESSION: No acute cardiopulmonary abnormality is seen. Approved by: Tamiko Trujillo M.D.,Ph.D. on 03/14/2024 at 12:[address] [facility] Narrative Medical decision making narrative: 68yo male with recent history respiratory infection sepsis with 2d productive cough and sore throat, lungs clear, no hypoxia, OP without redness or exudates, WBC 20k, lactate normal, blood cultures sent, Cetriaxone/Azithromycin, CXR neg, IVF give, sx improved, ambulated without dizziness. Will dc on Azithro given complicated pulmonary sepsis history. Improved, stable, home with Discharge Plan Departure Patient Disposition: Home Clinical Impression: Bronchitis Activity Restrictions/Additional Instructions: History of productive cough, sore throat, respiratory panel negative, chest x-ray negative, white blood cell count was quite elevated at 20,000 thousand, lactate negative however. You had history of pulmonary sepsis, therefore blood cultures were sent, and IV antibiotics were initially given IV, along with IV fluids. Your symptoms improved with IV fluids, UA able to ambulate around in the department. Your throat exam looked well, no redness or exudates or lesions. You may have a form of bronchitis, and could consider further antibiotics mostly on the basis of your recent history of pulmonary sepsis as a risk factor. Normally bronchitis is not treated with antibacterial antibiotics. We will give prescription for azithromycin further course of antibiotic for now. Recheck lung symptoms with your regular doctor in the next couple of days. Return to this/nearest emergency department for any change worsening symptoms or any concerns prior Prescriptions: New azithromycin 250 mg tablet See Rx Instructions .ROUTE .COMPLEX Qty: 6 0RF Rx Instructions: For 250 mg dose pack: take 500 mg today (day 1), then 250 mg for 4 days (days 2-5) No Action atorvastatin 10 mg Tablet 10 mg PO DAILY amlodipine 2.5 mg Tablet 2.5 mg PO DAILY bisoprolol fumarate 5 mg Tablet 2.5 mg PO DAILY baclofen 10 mg Tablet 10 mg PO TID PRN (Reason: muscle spasms) allopurinol 300 mg Tablet 300 mg PO DAILY furosemide 20 mg Tablet 10 mg PO QAM fluoxetine 20 mg Capsule 20 mg PO DAILY finasteride 5 mg Tablet 5 mg PO DAILY gabapentin 300 mg Tablet 300 mg PO TID diclofenac sodium 1 % Gel 4 g TOPICAL BID PRN (Reason: Pain (Scale Score 1-3)) Eucerin Cream 1 applic TOPICAL DAILY metformin 500 mg Tablet 500 mg PO BIDWMEAL triamcinolone acetonide 0.1 % Cream 1 applic TOPICAL BID PRN (Reason: Rash) Rx Instructions: christiana;ly moderate amount to affected area bid as needed for skin condition terbinafine HCl 250 mg Tablet See Rx Instructions .ROUTE .COMPLEX Rx Instructions: take one tablet by mouth every daon on the first 7 days of each month. tamsulosin 0.4 mg Capsule 0.4 mg PO BEDTIME pantoprazole 40 mg Tablet,Delayed Release (Dr/Ec) 40 mg PO DAILY montelukast 10 mg Tablet 10 mg PO DAILY losartan 100 mg Tablet 100 mg PO BEDTIME sennosides [senna] 8.6 mg Tablet 8.6 mg PO BID PRN (Reason: Constipation) Qty: 30 0RF melatonin 3 mg Tablet 6 mg PO BEDTIME PRN (Reason: Insomnia) Qty: 30 0RF trazodone 50 mg tablet 25 mg PO BEDTIME MDD 25 mg PRN (Reason: sleep) Qty: 15 0RF prednisone 20 mg tablet 20 mg PO DAILY MDD 20mg Qty: 5 0RF Rx Instructions: Start on Dec 10 amoxicillin-pot clavulanate [Augmentin] 500-125 mg tablet 1 tab PO TID MDD 3 tablets Qty: 18 0RF benzonatate 200 mg capsule 200 mg PO TID PRN (Reason: cough) Qty: 30 0RF Referrals: Ruddy Kinsey ARNP [Primary Care Provider] - Stand Alone Forms: Patient Portal/API
[2024-03-14] MEDS: AZITHROMYCIN 250 MG TABLET 500 MG PO (17:09)
[2024-03-14] MEDS: cefTRIAXone 1,000 MG in SODIUM CHLORIDE 0.9% 100 ML 200 MG IV (17:09)
== END 2024-03-14 19:23 | disposition home or self-care (01) ==
PROVIDERS: Emergency Provider Emergency Medicine; PCP Nurse Practitioner Family
DX: J40 Bronchitis, not specified as acute or chronic (principal)
CPT/HCPCS: 36415; 71045; 80053; 83605; 83690; 83880; 84145; 84484; 85025; 85610; 85730; 87040; 87070; 87077; 87147; 87185; 87205; 87633; 96365; 99284; J0696